=== PATIENT | female | born 1955 | race Caucasian/White ===

== ENCOUNTER 2017-10-01 15:38 | Inpatient (IN) | payer OTHER ==
[2017-10-01 16:25] LABS: ADD MAN DIFF? NO
[2017-10-01 16:27] LABS: WHITE BLOOD COUNT 16.8 10^3/ul (4.8-10.8)
[2017-10-01 16:27] LABS: BASOPHIL # 0.1 10^3/ul (0.0-0.1); BASOPHILS % 0.6 % (0.0-2.0); EOSINOPHILS # 0.1 10^3/ul (0.0-0.5); EOSINOPHILS % 0.8 % (0.0-7.0); HEMOGLOBIN 12.2 g/dl (12.0-16.0); LYMPHOCYTES # 2.7 10^3/ul (0.8-2.9); LYMPHOCYTES % 15.7 % (15.0-51.0); MEAN CORPUSCULAR HEMOGLOBIN 28.4 pg (29.0-33.0); MEAN CORPUSCULAR HGB CONC 33.9 g/dl (32.0-37.0); MEAN CORPUSCULAR VOLUME 83.9 fl (82.0-101.0); MONOCYTE # 0.9 10^3/ul (0.3-0.9); MONOCYTES % 5.5 % (0.0-11.0); NEUTROPHIL # 12.9 10^3/ul (1.6-7.5); NEUTROPHILS % 76.6 % (39.0-77.0); PLATELET COUNT 380 10^3/UL (140-415); RED BLOOD COUNT 4.29 10^6/ul (4.20-5.40); RED CELL DISTRIBUTION WIDTH 12.7 % (11.5-14.5)
[2017-10-01] MEDS: HYDROmorphONE 1 MG/5 ML IV SYRINGE IV ×2 (16:32→20:17)
[2017-10-01] MEDS: SOD CHLORIDE 0.9% 500 ML IV (16:32)
[2017-10-01] MEDS: ONDANSETRON 4 MG INJ IV ×2 (16:32→22:59)
[2017-10-01 16:46] LABS: ANION GAP 21 (8-16); BLOOD UREA NITROGEN 25 mg/dl (7-20); CALCIUM 9.3 mg/dl (8.4-10.2); CARBON DIOXIDE 24 mmol/L (21-31); CHLORIDE 96 mmol/L (97-110); CREATININE 1.13 mg/dl (0.44-1.00); GLUCOSE 244 mg/dl (70-220); POTASSIUM 3.8 mmol/L (3.5-5.1); SODIUM 137 mmol/L (135-144)
[2017-10-01] MEDS: KETAMINE (50 MG/ML) 10 ML VIAL IV (16:46)
[2017-10-01] MEDS: PROPOFOL 200 MG INJ IV (16:46)
[2017-10-01 16:58] LABS: INR 0.92; PROTIME 12.4 Sec (11.9-14.9)
[2017-10-01 16:59] LABS: PARTIAL THROMBOPLASTIN TIME 32.6 Sec (25.0-35.0)
[2017-10-01] MEDS ORDERED: LORAZEPAM 2 MG INJ (17:27)
[2017-10-01] MEDS: LORAZEPAM 2 MG INJ IV (17:30)
[2017-10-01] MEDS ORDERED: ONDANSETRON 4 MG INJ IV (19:00)
[2017-10-01] MEDS ORDERED: ACETAMINOPHEN 325 MG TAB PO (19:00)
[2017-10-01] MEDS ORDERED: GLUCAGON 1 MG INJ IM (22:30)
[2017-10-01] MEDS ORDERED: DEXTROSE 50% 50 ML SYRINGE IV ×2 (22:30)
[2017-10-01] MEDS ORDERED: GLUCOSE GEL 15 GRAM TUBE PO ×2 (22:30)
[2017-10-01] MEDS ORDERED: GLUCOSE GEL 15 GRAM TUBE BUCCAL (22:30)
[2017-10-01] MEDS: morphine 2 MG INJ IV (22:59)
[2017-10-01] MEDS: INSULIN ASPART [NOVOLOG] 3 ML PEN SC (23:53)
[2017-10-02] MEDS: ACCU-CHEK XX (04:00)
[2017-10-02] MEDS ORDERED: INSULIN ASPART [NOVOLOG] 3 ML PEN SC (07:50)
[2017-10-02] MEDS: ENOXAPARIN 40 MG/0.4 ML SYG SC (08:44)
[2017-10-02] MEDS: INSULIN ASPART [NOVOLOG] 3 ML PEN SC ×5 (09:04→21:00)
[2017-10-02] MEDS ORDERED: INSULIN REGULAR, HUMAN 100 UNIT/1 ML 3ML VIAL SC (11:10)
[2017-10-02] MEDS: ONDANSETRON 4 MG INJ IV (11:57)
[2017-10-02] MEDS: morphine 2 MG INJ IV (11:57)
[2017-10-02] MEDS: RANITIDINE 150 MG TAB PO (11:58)
[2017-10-02] MEDS: NIFEdipine (XL) 60 MG TAB PO (11:58)
[2017-10-02] MEDS: HYDROCHLOROTHIAZIDE 25 MG TAB PO (11:58)
[2017-10-02] MEDS: METOPROLOL 100 MG TAB PO ×2 (11:59→21:07)
[2017-10-02] MEDS: glipiZIDE 10 MG TAB PO (17:25)
[2017-10-02] MEDS: metFORMIN 500 MG TAB PO (18:17)
[2017-10-02] MEDS: INSULIN GLARGINE [LANtus] 3 ML PEN SC (21:34)
[2017-10-03] MEDS: ACCU-CHEK XX (02:00)
[2017-10-03] MEDS: morphine 2 MG INJ IV ×2 (02:05→19:42)
[2017-10-03] MEDS: HYDROCHLOROTHIAZIDE 25 MG TAB PO (06:14)
[2017-10-03] MEDS: NIFEdipine (XL) 60 MG TAB PO (08:54)
[2017-10-03] MEDS: RANITIDINE 150 MG TAB PO (08:54)
[2017-10-03] MEDS: metFORMIN 500 MG TAB PO ×2 (08:54→17:51)
[2017-10-03] MEDS: glipiZIDE 10 MG TAB PO ×2 (08:55→17:52)
[2017-10-03] MEDS: METOPROLOL 100 MG TAB PO ×2 (08:55→21:00)
[2017-10-03] MEDS: INSULIN ASPART [NOVOLOG] 3 ML PEN SC ×7 (09:01→21:00)
[2017-10-03] MEDS: ENOXAPARIN 30 MG/0.3 ML SYG SC (09:02)
[2017-10-03] MEDS: INSULIN GLARGINE [LANtus] 3 ML PEN SC ×2 (21:00→21:51)
[2017-10-04] MEDS: ACCU-CHEK XX (01:40)
[2017-10-04 05:43] LABS: ADD MAN DIFF? NO
[2017-10-04 05:47] LABS: BASOPHIL # 0.1 10^3/ul (0.0-0.1); BASOPHILS % 0.4 % (0.0-2.0); EOSINOPHILS # 0.1 10^3/ul (0.0-0.5); HEMATOCRIT 30.3 % (37.0-47.0); HEMOGLOBIN 10.3 g/dl (12.0-16.0); LYMPHOCYTES # 2.1 10^3/ul (0.8-2.9); LYMPHOCYTES % 17.2 % (15.0-51.0); MEAN CORPUSCULAR HEMOGLOBIN 28.4 pg (29.0-33.0); MEAN CORPUSCULAR VOLUME 83.5 fl (82.0-101.0); MEAN PLATELET VOLUME 8.9 fl (7.4-10.4); MONOCYTE # 1.1 10^3/ul (0.3-0.9); MONOCYTES % 9.1 % (0.0-11.0); NEUTROPHIL # 8.6 10^3/ul (1.6-7.5); NEUTROPHILS % 71.7 % (39.0-77.0); PLATELET COUNT 334 10^3/UL (140-415); RED BLOOD COUNT 3.63 10^6/ul (4.20-5.40); RED CELL DISTRIBUTION WIDTH 12.5 % (11.5-14.5)
[2017-10-04 06:15] LABS: ANION GAP 13 (8-16); BLOOD UREA NITROGEN 26 mg/dl (7-20); CARBON DIOXIDE 28 mmol/L (21-31); CHLORIDE 99 mmol/L (97-110); CREATININE 0.99 mg/dl (0.44-1.00); GLUCOSE 209 mg/dl (70-220); POTASSIUM 3.8 mmol/L (3.5-5.1); SODIUM 136 mmol/L (135-144)
[2017-10-04] MEDS: HYDROCHLOROTHIAZIDE 25 MG TAB PO (06:22)
[2017-10-04] MEDS: metFORMIN 500 MG TAB PO ×2 (08:37→18:07)
[2017-10-04] MEDS: glipiZIDE 10 MG TAB PO ×2 (08:38→18:07)
[2017-10-04] MEDS: NIFEdipine (XL) 60 MG TAB PO (08:38)
[2017-10-04] MEDS: RANITIDINE 150 MG TAB PO (08:38)
[2017-10-04] MEDS: METOPROLOL 100 MG TAB PO ×2 (08:39→21:37)
[2017-10-04] MEDS: ENOXAPARIN 30 MG/0.3 ML SYG SC (08:40)
[2017-10-04] MEDS: INSULIN ASPART [NOVOLOG] 3 ML PEN SC ×7 (08:41→21:00)
[2017-10-04] MEDS: morphine 2 MG INJ IV (18:13)
[2017-10-04] MEDS: INSULIN GLARGINE [LANtus] 3 ML PEN SC (21:42)
[2017-10-05] MEDS: ACCU-CHEK XX (02:00)
[2017-10-05] MEDS: morphine 2 MG INJ IV ×2 (03:45→22:46)
[2017-10-05] MEDS: ONDANSETRON 4 MG INJ IV ×2 (03:52→22:46)
[2017-10-05 05:06] LABS: ADD MAN DIFF? NO
[2017-10-05 05:09] LABS: BASOPHIL # 0.1 10^3/ul (0.0-0.1); BASOPHILS % 0.4 % (0.0-2.0); EOSINOPHILS # 0.1 10^3/ul (0.0-0.5); EOSINOPHILS % 0.8 % (0.0-7.0); HEMATOCRIT 31.1 % (37.0-47.0); HEMOGLOBIN 10.6 g/dl (12.0-16.0); LYMPHOCYTES # 1.9 10^3/ul (0.8-2.9); LYMPHOCYTES % 16.8 % (15.0-51.0); MEAN CORPUSCULAR HEMOGLOBIN 28.1 pg (29.0-33.0); MEAN CORPUSCULAR HGB CONC 34.1 g/dl (32.0-37.0); MEAN CORPUSCULAR VOLUME 82.5 fl (82.0-101.0); MEAN PLATELET VOLUME 8.8 fl (7.4-10.4); MONOCYTES % 9.2 % (0.0-11.0); NEUTROPHIL # 8.2 10^3/ul (1.6-7.5); NEUTROPHILS % 72.3 % (39.0-77.0); PLATELET COUNT 353 10^3/UL (140-415); RED BLOOD COUNT 3.77 10^6/ul (4.20-5.40); RED CELL DISTRIBUTION WIDTH 12.5 % (11.5-14.5)
[2017-10-05 05:09] LABS: WHITE BLOOD COUNT 11.3 10^3/ul (4.8-10.8)
[2017-10-05 05:30] LABS: ANION GAP 18 (8-16); BLOOD UREA NITROGEN 27 mg/dl (7-20); CALCIUM 9.3 mg/dl (8.4-10.2); CARBON DIOXIDE 26 mmol/L (21-31); CHLORIDE 96 mmol/L (97-110); CREATININE 1.09 mg/dl (0.44-1.00); GLUCOSE 149 mg/dl (70-220); POTASSIUM 3.9 mmol/L (3.5-5.1); SODIUM 136 mmol/L (135-144)
[2017-10-05] MEDS: HYDROCHLOROTHIAZIDE 25 MG TAB PO (06:08)
[2017-10-05] MEDS: glipiZIDE 10 MG TAB PO (09:01)
[2017-10-05] MEDS: metFORMIN 500 MG TAB PO ×2 (09:01→17:35)
[2017-10-05] MEDS: RANITIDINE 150 MG TAB PO (09:01)
[2017-10-05] MEDS: METOPROLOL 100 MG TAB PO ×2 (09:02→21:09)
[2017-10-05] MEDS: NIFEdipine (XL) 60 MG TAB PO (09:03)
[2017-10-05] MEDS: INSULIN ASPART [NOVOLOG] 3 ML PEN SC ×7 (09:07→21:00)
[2017-10-05] MEDS: ENOXAPARIN 30 MG/0.3 ML SYG SC (09:08)
[2017-10-05] MEDS: INSULIN GLARGINE [LANtus] 3 ML PEN SC (21:11)
[2017-10-06] MEDS: ACCU-CHEK XX (01:38)
[2017-10-06 05:13] LABS: ADD MAN DIFF? NO
[2017-10-06 05:18] LABS: WHITE BLOOD COUNT 10.5 10^3/ul (4.8-10.8)
[2017-10-06 05:18] LABS: BASOPHILS % 0.4 % (0.0-2.0); EOSINOPHILS # 0.1 10^3/ul (0.0-0.5); EOSINOPHILS % 1.1 % (0.0-7.0); HEMATOCRIT 29.1 % (37.0-47.0); HEMOGLOBIN 9.8 g/dl (12.0-16.0); LYMPHOCYTES # 2.5 10^3/ul (0.8-2.9); LYMPHOCYTES % 23.6 % (15.0-51.0); MEAN CORPUSCULAR HGB CONC 33.7 g/dl (32.0-37.0); MEAN CORPUSCULAR VOLUME 83.1 fl (82.0-101.0); MEAN PLATELET VOLUME 8.9 fl (7.4-10.4); MONOCYTE # 0.9 10^3/ul (0.3-0.9); MONOCYTES % 8.6 % (0.0-11.0); NEUTROPHIL # 6.9 10^3/ul (1.6-7.5); NEUTROPHILS % 65.7 % (39.0-77.0); PLATELET COUNT 344 10^3/UL (140-415); RED CELL DISTRIBUTION WIDTH 12.8 % (11.5-14.5)
[2017-10-06 05:35] LABS: ANION GAP 15 (8-16); BLOOD UREA NITROGEN 30 mg/dl (7-20); CALCIUM 9.3 mg/dl (8.4-10.2); CARBON DIOXIDE 29 mmol/L (21-31); CHLORIDE 96 mmol/L (97-110); CREATININE 1.21 mg/dl (0.44-1.00); GLUCOSE 180 mg/dl (70-220); POTASSIUM 4.4 mmol/L (3.5-5.1); SODIUM 136 mmol/L (135-144)
[2017-10-06] MEDS: HYDROCHLOROTHIAZIDE 25 MG TAB PO (06:19)
[2017-10-06] MEDS ORDERED: glipiZIDE 10 MG TAB PO (07:20)
[2017-10-06] MEDS: LINAGLIPTIN 5 MG TABLET PO (09:13)
[2017-10-06] MEDS: metFORMIN 500 MG TAB PO ×2 (09:13→17:52)
[2017-10-06] MEDS: RANITIDINE 150 MG TAB PO (09:13)
[2017-10-06] MEDS: NIFEdipine (XL) 60 MG TAB PO (09:14)
[2017-10-06] MEDS: METOPROLOL 100 MG TAB PO ×2 (09:14→20:53)
[2017-10-06] MEDS: ENOXAPARIN 30 MG/0.3 ML SYG SC (09:18)
[2017-10-06] MEDS: INSULIN ASPART [NOVOLOG] 3 ML PEN SC ×7 (09:26→20:56)
[2017-10-06] MEDS: MAGNESIUM HYDROXIDE 30ML CUP PO (16:19)
[2017-10-06] MEDS: SOD CHLORIDE 0.45% IV (18:49)
[2017-10-06] MEDS: SODIUM CHLORIDE 0.45% 500 ML BAG IV* ×2 (18:52→18:54)
[2017-10-06] MEDS: ACETAMINOPHEN 325 MG TAB PO (19:01)
[2017-10-06] MEDS: DOCUSATE SODIUM 100 MG CAP PO (20:52)
[2017-10-06] MEDS: INSULIN GLARGINE [LANtus] 3 ML PEN SC (21:00)
[2017-10-07] MEDS: ACCU-CHEK XX (02:00)
[2017-10-07] MEDS: morphine 2 MG INJ IV (03:24)
[2017-10-07 05:01] LABS: ADD MAN DIFF? NO
[2017-10-07 05:06] LABS: BASOPHIL # 0.1 10^3/ul (0.0-0.1); BASOPHILS % 0.5 % (0.0-2.0); EOSINOPHILS # 0.2 10^3/ul (0.0-0.5); EOSINOPHILS % 1.5 % (0.0-7.0); HEMATOCRIT 29.4 % (37.0-47.0); HEMOGLOBIN 9.9 g/dl (12.0-16.0); LYMPHOCYTES # 2.1 10^3/ul (0.8-2.9); LYMPHOCYTES % 21.2 % (15.0-51.0); MEAN CORPUSCULAR HGB CONC 33.7 g/dl (32.0-37.0); MEAN CORPUSCULAR VOLUME 83.3 fl (82.0-101.0); MEAN PLATELET VOLUME 8.9 fl (7.4-10.4); MONOCYTE # 0.9 10^3/ul (0.3-0.9); MONOCYTES % 9.5 % (0.0-11.0); NEUTROPHIL # 6.5 10^3/ul (1.6-7.5); NEUTROPHILS % 66.5 % (39.0-77.0); PLATELET COUNT 369 10^3/UL (140-415); RED BLOOD COUNT 3.53 10^6/ul (4.20-5.40); RED CELL DISTRIBUTION WIDTH 12.8 % (11.5-14.5)
[2017-10-07 05:06] LABS: WHITE BLOOD COUNT 9.8 10^3/ul (4.8-10.8)
[2017-10-07 05:25] LABS: ANION GAP 18 (8-16); BLOOD UREA NITROGEN 29 mg/dl (7-20); CALCIUM 9.3 mg/dl (8.4-10.2); CARBON DIOXIDE 28 mmol/L (21-31); CHLORIDE 95 mmol/L (97-110); CREATININE 1.14 mg/dl (0.44-1.00); GLUCOSE 175 mg/dl (70-220); POTASSIUM 3.9 mmol/L (3.5-5.1); SODIUM 137 mmol/L (135-144)
[2017-10-07] MEDS: NIFEdipine (XL) 60 MG TAB PO (08:34)
[2017-10-07] MEDS: RANITIDINE 150 MG TAB PO (08:34)
[2017-10-07] MEDS: metFORMIN 500 MG TAB PO ×2 (08:35→17:47)
[2017-10-07] MEDS: DOCUSATE SODIUM 100 MG CAP PO ×2 (08:35→20:41)
[2017-10-07] MEDS: LINAGLIPTIN 5 MG TABLET PO (08:35)
[2017-10-07] MEDS: METOPROLOL 100 MG TAB PO ×2 (08:36→20:41)
[2017-10-07] MEDS: SENNA TAB PO ×2 (08:36→20:41)
[2017-10-07] MEDS: BISACODYL (EC) 5 MG TAB PO (08:36)
[2017-10-07] MEDS: INSULIN ASPART [NOVOLOG] 3 ML PEN SC ×7 (08:40→20:45)
[2017-10-07] MEDS: HYDROCODONE/APAP (5/325) TAB PO (17:48)
[2017-10-07] MEDS: INSULIN GLARGINE [LANtus] 3 ML PEN SC (20:46)
[2017-10-08] MEDS: ACCU-CHEK XX (02:00)
[2017-10-08] MEDS: HYDROCODONE/APAP (5/325) TAB PO ×3 (02:33→16:55)
[2017-10-08] MEDS: metFORMIN 500 MG TAB PO ×2 (07:50→18:06)
[2017-10-08] MEDS: INSULIN ASPART [NOVOLOG] 3 ML PEN SC ×7 (07:50→20:53)
[2017-10-08] MEDS: RANITIDINE 150 MG TAB PO (09:36)
[2017-10-08] MEDS: LINAGLIPTIN 5 MG TABLET PO (09:37)
[2017-10-08] MEDS: SENNA TAB PO ×2 (09:37→20:52)
[2017-10-08] MEDS: NIFEdipine (XL) 60 MG TAB PO (09:37)
[2017-10-08] MEDS: METOPROLOL 100 MG TAB PO ×2 (09:39→20:35)
[2017-10-08] MEDS: DOCUSATE SODIUM 100 MG CAP PO ×2 (09:44→20:52)
[2017-10-08] MEDS: INSULIN GLARGINE [LANtus] 3 ML PEN SC (20:39)
[2017-10-09] MEDS: HYDROCODONE/APAP (5/325) TAB PO ×3 (00:17→18:11)
[2017-10-09] MEDS: ACCU-CHEK XX (01:23)
[2017-10-09] MEDS: INSULIN ASPART [NOVOLOG] 3 ML PEN SC ×7 (09:06→20:48)
[2017-10-09] MEDS: RANITIDINE 150 MG TAB PO (09:09)
[2017-10-09] MEDS: metFORMIN 500 MG TAB PO ×2 (09:09→18:11)
[2017-10-09] MEDS: DOCUSATE SODIUM 100 MG CAP PO ×2 (09:09→20:41)
[2017-10-09] MEDS: NIFEdipine (XL) 60 MG TAB PO (09:09)
[2017-10-09] MEDS: LINAGLIPTIN 5 MG TABLET PO (09:09)
[2017-10-09] MEDS: METOPROLOL 100 MG TAB PO ×2 (09:09→20:42)
[2017-10-09] MEDS: SENNA TAB PO ×2 (09:09→20:42)
[2017-10-09] MEDS: INSULIN GLARGINE [LANtus] 3 ML PEN SC (20:48)
[2017-10-10] MEDS: HYDROCODONE/APAP (5/325) TAB PO ×4 (01:57→21:21)
[2017-10-10] MEDS: ACCU-CHEK XX (02:00)
[2017-10-10] MEDS: metFORMIN 500 MG TAB PO ×2 (08:38→17:47)
[2017-10-10] MEDS: NIFEdipine (XL) 60 MG TAB PO (08:39)
[2017-10-10] MEDS: DOCUSATE SODIUM 100 MG CAP PO ×2 (08:39→20:59)
[2017-10-10] MEDS: LINAGLIPTIN 5 MG TABLET PO (08:39)
[2017-10-10] MEDS: RANITIDINE 150 MG TAB PO (08:39)
[2017-10-10] MEDS: SENNA TAB PO ×2 (08:39→20:59)
[2017-10-10] MEDS: METOPROLOL 100 MG TAB PO ×2 (08:41→20:59)
[2017-10-10] MEDS: INSULIN ASPART [NOVOLOG] 3 ML PEN SC ×8 (08:53→21:00)
[2017-10-10] MEDS: INSULIN GLARGINE [LANtus] 3 ML PEN SC (21:06)
[2017-10-11] MEDS: ACCU-CHEK XX (01:41)
[2017-10-11 05:45] LABS: ADD MAN DIFF? NO
[2017-10-11 06:11] LABS: WHITE BLOOD COUNT 9.9 10^3/ul (4.8-10.8)
[2017-10-11 06:11] LABS: BASOPHIL # 0.1 10^3/ul (0.0-0.1); BASOPHILS % 0.6 % (0.0-2.0); EOSINOPHILS # 0.2 10^3/ul (0.0-0.5); EOSINOPHILS % 1.6 % (0.0-7.0); HEMATOCRIT 30.9 % (37.0-47.0); HEMOGLOBIN 10.2 g/dl (12.0-16.0); LYMPHOCYTES # 2.4 10^3/ul (0.8-2.9); LYMPHOCYTES % 23.8 % (15.0-51.0); MEAN CORPUSCULAR HEMOGLOBIN 28.4 pg (29.0-33.0); MEAN CORPUSCULAR VOLUME 86.1 fl (82.0-101.0); MEAN PLATELET VOLUME 8.8 fl (7.4-10.4); MONOCYTE # 0.8 10^3/ul (0.3-0.9); MONOCYTES % 8.5 % (0.0-11.0); NEUTROPHIL # 6.3 10^3/ul (1.6-7.5); NEUTROPHILS % 64.4 % (39.0-77.0); PLATELET COUNT 450 10^3/UL (140-415); RED BLOOD COUNT 3.59 10^6/ul (4.20-5.40); RED CELL DISTRIBUTION WIDTH 12.9 % (11.5-14.5)
[2017-10-11 06:41] LABS: ANION GAP 15 (8-16); BLOOD UREA NITROGEN 21 mg/dl (7-20); CALCIUM 9.4 mg/dl (8.4-10.2); CARBON DIOXIDE 29 mmol/L (21-31); CHLORIDE 97 mmol/L (97-110); CREATININE 0.94 mg/dl (0.44-1.00); GLUCOSE 162 mg/dl (70-220); POTASSIUM 4.6 mmol/L (3.5-5.1); SODIUM 136 mmol/L (135-144)
[2017-10-11] MEDS: metFORMIN 500 MG TAB PO ×2 (08:43→18:39)
[2017-10-11] MEDS: DOCUSATE SODIUM 100 MG CAP PO ×2 (08:43→20:48)
[2017-10-11] MEDS: METOPROLOL 100 MG TAB PO ×2 (08:44→20:48)
[2017-10-11] MEDS: SENNA TAB PO ×2 (08:45→20:48)
[2017-10-11] MEDS: NIFEdipine (XL) 60 MG TAB PO (08:45)
[2017-10-11] MEDS: HYDROCODONE/APAP (5/325) TAB PO ×2 (08:46→18:39)
[2017-10-11] MEDS: LINAGLIPTIN 5 MG TABLET PO (08:46)
[2017-10-11] MEDS: RANITIDINE 150 MG TAB PO (08:47)
[2017-10-11] MEDS: INSULIN ASPART [NOVOLOG] 3 ML PEN SC ×7 (08:51→20:52)
[2017-10-11] MEDS: INSULIN GLARGINE [LANtus] 3 ML PEN SC (20:51)
[2017-10-12] MEDS: HYDROCODONE/APAP (5/325) TAB PO ×4 (00:43→16:02)
[2017-10-12] MEDS: ACCU-CHEK XX (02:08)
[2017-10-12] MEDS: metFORMIN 500 MG TAB PO ×2 (08:42→17:52)
[2017-10-12] MEDS: SENNA TAB PO (08:42)
[2017-10-12] MEDS: NIFEdipine (XL) 60 MG TAB PO (08:42)
[2017-10-12] MEDS: RANITIDINE 150 MG TAB PO (08:43)
[2017-10-12] MEDS: METOPROLOL 100 MG TAB PO (08:43)
[2017-10-12] MEDS: DOCUSATE SODIUM 100 MG CAP PO (08:43)
[2017-10-12] MEDS: LINAGLIPTIN 5 MG TABLET PO (08:43)
[2017-10-12] MEDS: INSULIN ASPART [NOVOLOG] 3 ML PEN SC ×6 (08:48→17:42)
== END 2017-10-12 19:10 | disposition home or self-care (01) | DRG 563 ==
LOC: MS1 10-03 06:12 → E/R 15:38 → MS1 18:43
PROC: 0RS Upper Joints, Reposition (ICD-10-PCS; principal; 2017-10-01)
DX: S53.101A Unspecified subluxation of right ulnohumeral joint, initial encounter (principal); S53.124A Posterior dislocation of right ulnohumeral joint, initial encounter; S52.131A Displaced fracture of neck of right radius, initial encounter for closed fracture; I10 Essential (primary) hypertension; E78.5 Hyperlipidemia, unspecified; W18.30XA Fall on same level, unspecified, initial encounter; Y92.009 Unspecified place in unspecified non-institutional (private) residence as the place of occurrence of the external cause; E11.65 Type 2 diabetes mellitus with hyperglycemia
CPT/HCPCS: 36415; 71045; 73070; 73070-52; 73120; 73200; 80048; 82962; 83036; 85025; 85610; 85730; 93005; 94770; 96374; 96375; 96376; 99285-25

== ENCOUNTER 2017-12-01 05:54 | Day surgery (SDC) | payer OTHER ==
[2017-12-01] MEDS ORDERED: BUPIVACAINE 0.25% (MPF) 30 ML INJ (07:00)
[2017-12-01] MEDS ORDERED: LACTATED RINGER'S 1,000 ML IV* (07:00)
[2017-12-01] MEDS ORDERED: CEFAZOLIN 2 GM/50 ML (PMX) 50 ML IVPB (07:00)
[2017-12-01] MEDS: INSULIN ASPART [NOVOLOG] 3 ML PEN SC ×2 (07:03→08:12)
[2017-12-01] MEDS ORDERED: ROCURONIUM 50 MG INJ (07:44)
[2017-12-01] MEDS ORDERED: HYDROmorphONE 2 MG/ML SYG (07:44)
[2017-12-01] MEDS ORDERED: CEFAZOLIN 1 GM INJ (07:44)
[2017-12-01] MEDS ORDERED: MIDAZOLAM 1 MG/ML 2 ML INJ (07:44)
[2017-12-01] MEDS ORDERED: PROPOFOL 20 ML (07:44)
[2017-12-01] MEDS ORDERED: ROPIVACAINE 0.5 % 30 ML VIAL (07:45)
[2017-12-01] MEDS: POLYMYXIN/BACITRACIN 1L IRRIG (08:32)
[2017-12-01] MEDS ORDERED: LABETALOL HCL 20MG INJ (09:16)
[2017-12-01] MEDS ORDERED: VANCOMYCIN 1 GM INJ (09:53)
[2017-12-01] MEDS ORDERED: ONDANSETRON 4 MG INJ (10:26)
[2017-12-01] MEDS ORDERED: METOCLOPRAMIDE 10 MG INJ (10:26)
[2017-12-01] MEDS ORDERED: ACETAMINOPHEN 1000MG/100ML IV 100 ML (10:26)
[2017-12-01] MEDS ORDERED: KETOROLAC 30 MG INJ (10:27)
[2017-12-01] MEDS ORDERED: DEXAMETHASONE 4 MG/ML 1 ML INJ (10:27)
[2017-12-01] MEDS ORDERED: GLYCOPYRROLATE 0.4 MG INJ (10:32)
[2017-12-01] MEDS ORDERED: NEOSTIGMINE 3 MG/3 ML SYRINGE (10:32)
[2017-12-01] MEDS ORDERED: hydrALAzine 20 MG INJ (11:28)
[2017-12-01] MEDS ORDERED: ONDANSETRON 4 MG INJ IV (11:30)
[2017-12-01] MEDS ORDERED: HYDROmorphONE 1 MG/5 ML IV SYRINGE IV ×3 (11:30)
[2017-12-01] MEDS ORDERED: METOCLOPRAMIDE 10 MG INJ IV (11:30)
[2017-12-01] MEDS ORDERED: LABETALOL HCL 20MG INJ IV (11:30)
[2017-12-01] MEDS ORDERED: DIPHENHYDRAMINE 50 MG INJ IV (11:30)
[2017-12-01] MEDS ORDERED: EPHEDrine SULFATE 50 MG/5 ML SYG IV (11:30)
[2017-12-01] MEDS ORDERED: OXYCODONE/ACETAMINOPHEN (5/325) TAB PO ×2 (11:30)
[2017-12-01] MEDS ORDERED: MEPERIDINE 25 MG INJ IV (11:30)
[2017-12-01] MEDS ORDERED: FENTAnyl 50 MCG/ML VIAL IV ×3 (11:30)
[2017-12-01] MEDS: hydrALAzine 20 MG INJ IV ×2 (11:35→11:40)
[2017-12-01] MEDS: NITROGLYCERIN (SL) 0.4 MG TAB SL (14:32)
== END 2017-12-06 08:35 | disposition home health service (06) ==
LOC: SDS 05:54 → REC 12-03 19:20
DX: S52.121D Displaced fracture of head of right radius, subsequent encounter for closed fracture with routine healing (principal); S53.431D Radial collateral ligament sprain of right elbow, subsequent encounter; S44.0 Injury of ulnar nerve at upper arm level; X58.XXXD Exposure to other specified factors, subsequent encounter; G56.21 Lesion of ulnar nerve, right upper limb; E11.9 Type 2 diabetes mellitus without complications; I10 Essential (primary) hypertension; E78.5 Hyperlipidemia, unspecified; E66.9 Obesity, unspecified; Z68.29 Body mass index [BMI] 29.0-29.9, adult
CPT/HCPCS: 24344; 73080-RT; 82962; 93005

== ENCOUNTER 2017-12-01 15:06 | Inpatient (IN) | payer OTHER ==
[2017-12-01 16:28] LABS: ADD MAN DIFF? NO
[2017-12-01 16:34] LABS: BASOPHILS % 0.2 % (0.0-2.0); HEMOGLOBIN 11.1 g/dl (12.0-16.0); LYMPHOCYTES # 0.6 10^3/ul (0.8-2.9); LYMPHOCYTES % 3.8 % (15.0-51.0); MEAN CORPUSCULAR HEMOGLOBIN 28.1 pg (29.0-33.0); MEAN CORPUSCULAR HGB CONC 33.6 g/dl (32.0-37.0); MEAN CORPUSCULAR VOLUME 83.5 fl (82.0-101.0); MONOCYTE # 0.3 10^3/ul (0.3-0.9); NEUTROPHIL # 15.1 10^3/ul (1.6-7.5); NEUTROPHILS % 93.4 % (39.0-77.0); PLATELET COUNT 328 10^3/UL (140-415); RED BLOOD COUNT 3.95 10^6/ul (4.20-5.40); RED CELL DISTRIBUTION WIDTH 12.5 % (11.5-14.5)
[2017-12-01 16:34] LABS: WHITE BLOOD COUNT 16.1 10^3/ul (4.8-10.8)
[2017-12-01 16:53] LABS: ANION GAP 20 (8-16); BLOOD UREA NITROGEN 17 mg/dl (7-20); CARBON DIOXIDE 23 mmol/L (21-31); CHLORIDE 98 mmol/L (97-110); CREATININE 0.95 mg/dl (0.44-1.00); POTASSIUM 4.3 mmol/L (3.5-5.1); SODIUM 137 mmol/L (135-144)
[2017-12-01 17:00] LABS: INR 1.04; PROTIME 13.7 Sec (11.9-14.9); PT RATIO 1.1
[2017-12-01 17:01] LABS: GLUCOSE 403 mg/dl (70-220); PARTIAL THROMBOPLASTIN TIME 27.7 Sec (25.0-35.0)
[2017-12-01 17:03] LABS: D-DIMER 1344.62 ng/ml (<460)
[2017-12-01 17:06] LABS: TROPONIN-I < 0.012 ng/ml (0.000-0.120)
[2017-12-01] MEDS: SOD CHLORIDE 0.9% 1,000 ML IV (18:19)
[2017-12-01] MEDS: ASPIRIN 325 MG TAB PO (18:19)
[2017-12-01] MEDS: SOD CHLORIDE 0.9% 100 ML (20:03)
[2017-12-01] MEDS: IOHEXOL 100 ML (20:03)
[2017-12-01 21:50] LABS: CREATINE KINASE 243 IU/L (23-200)
[2017-12-01 22:00] LABS: CK INDEX 0.7; CK-MB 1.69 ng/ml (0.0-2.4)
[2017-12-01 22:04] LABS: TROPONIN-I < 0.012 ng/ml (0.000-0.120)
[2017-12-01] MEDS ORDERED: NITROGLYCERIN (SL) 0.4 MG TAB SL (23:30)
[2017-12-01] MEDS ORDERED: DEXTROSE 50% 50 ML SYRINGE IV ×2 (23:45)
[2017-12-01] MEDS ORDERED: GLUCOSE GEL 15 GRAM TUBE BUCCAL (23:45)
[2017-12-01] MEDS ORDERED: GLUCOSE GEL 15 GRAM TUBE PO ×2 (23:45)
[2017-12-01] MEDS ORDERED: GLUCAGON 1 MG INJ IM (23:45)
[2017-12-02] MEDS ORDERED: ACCU-CHEK XX ×2 (02:00)
[2017-12-02] MEDS: ACCU-CHEK XX (02:32)
[2017-12-02] MEDS: HYDROCODONE/APAP (5/325) TAB PO ×4 (02:39→20:51)
[2017-12-02] MEDS: ACETAMINOPHEN 500 MG TAB PO (04:11)
[2017-12-02] MEDS: PANTOPRAZOLE (EC) 40 MG TAB PO (06:15)
[2017-12-02 07:59] LABS: ADD MAN DIFF? NO
[2017-12-02] MEDS: INSULIN ASPART [NOVOLOG] 3 ML PEN SC ×8 (08:05→20:50)
[2017-12-02] MEDS: ISOSORBIDE MONONITRATE(SR)30 MG TAB PO (08:14)
[2017-12-02] MEDS: HYDROCHLOROTHIAZIDE 25 MG TAB PO (08:14)
[2017-12-02] MEDS: LINAGLIPTIN 5 MG TABLET PO (08:14)
[2017-12-02] MEDS: ASPIRIN (EC) 325 MG TAB PO (08:16)
[2017-12-02] MEDS: METOPROLOL 25 MG TAB PO (08:16)
[2017-12-02] MEDS: NIFEdipine (XL) 60 MG TAB PO (08:16)
[2017-12-02] MEDS: LOSARTAN 50 MG TAB PO (08:16)
[2017-12-02 08:17] LABS: WHITE BLOOD COUNT 11.6 10^3/ul (4.8-10.8)
[2017-12-02 08:17] LABS: BASOPHILS % 0.2 % (0.0-2.0); HEMATOCRIT 29.9 % (37.0-47.0); HEMOGLOBIN 9.9 g/dl (12.0-16.0); LYMPHOCYTES # 1.8 10^3/ul (0.8-2.9); LYMPHOCYTES % 15.9 % (15.0-51.0); MEAN CORPUSCULAR HEMOGLOBIN 27.7 pg (29.0-33.0); MEAN CORPUSCULAR HGB CONC 33.1 g/dl (32.0-37.0); MEAN CORPUSCULAR VOLUME 83.5 fl (82.0-101.0); MEAN PLATELET VOLUME 9.3 fl (7.4-10.4); MONOCYTE # 1.3 10^3/ul (0.3-0.9); MONOCYTES % 11.1 % (0.0-11.0); NEUTROPHIL # 8.4 10^3/ul (1.6-7.5); NEUTROPHILS % 72.4 % (39.0-77.0); PLATELET COUNT 305 10^3/UL (140-415); RED BLOOD COUNT 3.58 10^6/ul (4.20-5.40); RED CELL DISTRIBUTION WIDTH 12.9 % (11.5-14.5)
[2017-12-02 08:30] LABS: CHOLESTEROL 161 mg/dl (100-200)
[2017-12-02 08:30] LABS: CHOL/HDL RATIO 4.4 RATIO; HDL CHOLESTEROL 36 mg/dl (35-98); LDL CHOLESTEROL,CALCULATED 93 mg/dl; TRIGLYCERIDES 160 mg/dl (0-149)
[2017-12-02 08:31] LABS: HEMOGLOBIN A1C 7.8 % (0-5.9)
[2017-12-02 08:37] LABS: CREATINE KINASE 220 IU/L (23-200)
[2017-12-02 08:46] LABS: CK INDEX 0.8; CK-MB 1.75 ng/ml (0.0-2.4)
[2017-12-02 08:47] LABS: TROPONIN-I < 0.012 ng/ml (0.000-0.120)
[2017-12-02] MEDS ORDERED: NITROGLYCERIN (SL) 0.4 MG TAB SL (13:30)
[2017-12-02 14:28] LABS: CHOLESTEROL 174 mg/dl (100-200)
[2017-12-02 14:28] LABS: CHOL/HDL RATIO 4.2 RATIO; HDL CHOLESTEROL 41 mg/dl (35-98); LDL CHOLESTEROL,CALCULATED 100 mg/dl; TRIGLYCERIDES 166 mg/dl (0-149)
[2017-12-02 15:07] LABS: TROPONIN-I < 0.012 ng/ml (0.000-0.120)
[2017-12-02] MEDS: metFORMIN 500 MG TAB PO (18:07)
[2017-12-02 18:17] LABS: IRON 74 ug/dl (35-150)
[2017-12-02 18:27] LABS: % IRON SATURATION 26 % SAT (22-52); TOTAL IRON BINDING CAPACITY 282 ug/dl (241-421)
[2017-12-02 20:19] LABS: HEPATITIS C VIRAL ANTIBODY NEGATIVE (NEGATIVE)
[2017-12-02] MEDS: INSULIN GLARGINE [LANtus] 3 ML PEN SC (20:49)
[2017-12-02] MEDS: METOPROLOL 50 MG TAB PO (20:51)
[2017-12-03] MEDS: ACCU-CHEK XX (02:00)
[2017-12-03] MEDS: PANTOPRAZOLE (EC) 40 MG TAB PO (05:42)
[2017-12-03] MEDS: ISOSORBIDE MONONITRATE(SR)30 MG TAB PO (08:32)
[2017-12-03] MEDS: metFORMIN 500 MG TAB PO ×2 (08:32→17:23)
[2017-12-03] MEDS: LOSARTAN 50 MG TAB PO (08:32)
[2017-12-03] MEDS: NIFEdipine (XL) 30 MG TAB PO (08:33)
[2017-12-03] MEDS: METOPROLOL 50 MG TAB PO (08:33)
[2017-12-03] MEDS: ASPIRIN (EC) 325 MG TAB PO (08:33)
[2017-12-03] MEDS: LINAGLIPTIN 5 MG TABLET PO (08:33)
[2017-12-03] MEDS: HYDROCHLOROTHIAZIDE 25 MG TAB PO (08:33)
[2017-12-03 08:37] LABS: ADD MAN DIFF? NO
[2017-12-03] MEDS: INSULIN ASPART [NOVOLOG] 3 ML PEN SC ×7 (08:39→20:41)
[2017-12-03 08:42] LABS: WHITE BLOOD COUNT 13.2 10^3/ul (4.8-10.8)
[2017-12-03 08:42] LABS: BASOPHIL # 0.1 10^3/ul (0.0-0.1); BASOPHILS % 0.4 % (0.0-2.0); EOSINOPHILS # 0.2 10^3/ul (0.0-0.5); EOSINOPHILS % 1.2 % (0.0-7.0); HEMATOCRIT 32.1 % (37.0-47.0); HEMOGLOBIN 10.6 g/dl (12.0-16.0); LYMPHOCYTES # 2.5 10^3/ul (0.8-2.9); LYMPHOCYTES % 19.1 % (15.0-51.0); MEAN CORPUSCULAR HEMOGLOBIN 27.9 pg (29.0-33.0); MEAN CORPUSCULAR VOLUME 84.5 fl (82.0-101.0); MEAN PLATELET VOLUME 9.2 fl (7.4-10.4); MONOCYTES % 7.8 % (0.0-11.0); NEUTROPHIL # 9.4 10^3/ul (1.6-7.5); NEUTROPHILS % 70.8 % (39.0-77.0); PLATELET COUNT 319 10^3/UL (140-415); RED CELL DISTRIBUTION WIDTH 12.6 % (11.5-14.5)
[2017-12-03] MEDS ORDERED: NIFEdipine (XL) 60 MG TAB PO (09:00)
[2017-12-03 09:05] LABS: ANION GAP 17 (8-16); BLOOD UREA NITROGEN 22 mg/dl (7-20); CALCIUM 9.2 mg/dl (8.4-10.2); CARBON DIOXIDE 28 mmol/L (21-31); CHLORIDE 95 mmol/L (97-110); CREATININE 0.92 mg/dl (0.44-1.00); GLUCOSE 271 mg/dl (70-220); POTASSIUM 4.4 mmol/L (3.5-5.1); SODIUM 136 mmol/L (135-144)
[2017-12-03 09:13] LABS: FREE T4 (FREE THYROXINE) 2.41 ng/dl (0.78-2.44)
[2017-12-03 09:18] LABS: HEMOGLOBIN A1C 8.1 % (0-5.9)
[2017-12-03 09:51] LABS: THYROID STIMULATING HORMONE 0.449 MIU/L (0.465-4.680)
[2017-12-03 10:49] LABS: CHOLESTEROL 180 mg/dl (100-200)
[2017-12-03 10:49] LABS: HDL CHOLESTEROL 36 mg/dl (35-98); LDL CHOLESTEROL,CALCULATED 100 mg/dl; TRIGLYCERIDES 221 mg/dl (0-149)
[2017-12-03] MEDS: METOPROLOL 100 MG TAB PO (20:40)
[2017-12-03] MEDS: INSULIN GLARGINE [LANtus] 3 ML PEN SC (20:41)
[2017-12-04] MEDS: ACCU-CHEK XX (02:00)
[2017-12-04] MEDS: PANTOPRAZOLE (EC) 40 MG TAB PO (05:23)
[2017-12-04 06:11] LABS: ADD MAN DIFF? NO
[2017-12-04 06:14] LABS: BASOPHILS % 0.3 % (0.0-2.0); EOSINOPHILS # 0.1 10^3/ul (0.0-0.5); EOSINOPHILS % 0.9 % (0.0-7.0); HEMATOCRIT 31.3 % (37.0-47.0); HEMOGLOBIN 10.5 g/dl (12.0-16.0); LYMPHOCYTES # 2.2 10^3/ul (0.8-2.9); LYMPHOCYTES % 19.3 % (15.0-51.0); MEAN CORPUSCULAR HEMOGLOBIN 28.1 pg (29.0-33.0); MEAN CORPUSCULAR HGB CONC 33.5 g/dl (32.0-37.0); MEAN CORPUSCULAR VOLUME 83.7 fl (82.0-101.0); MEAN PLATELET VOLUME 9.1 fl (7.4-10.4); MONOCYTES % 8.8 % (0.0-11.0); NEUTROPHIL # 7.9 10^3/ul (1.6-7.5); NEUTROPHILS % 69.8 % (39.0-77.0); PLATELET COUNT 314 10^3/UL (140-415); RED BLOOD COUNT 3.74 10^6/ul (4.20-5.40); RED CELL DISTRIBUTION WIDTH 12.5 % (11.5-14.5)
[2017-12-04 06:14] LABS: WHITE BLOOD COUNT 11.3 10^3/ul (4.8-10.8)
[2017-12-04 07:00] LABS: ANION GAP 15 (8-16); BLOOD UREA NITROGEN 21 mg/dl (7-20); CALCIUM 9.3 mg/dl (8.4-10.2); CARBON DIOXIDE 27 mmol/L (21-31); CHLORIDE 100 mmol/L (97-110); CREATININE 0.98 mg/dl (0.44-1.00); GLUCOSE 260 mg/dl (70-220); POTASSIUM 4.3 mmol/L (3.5-5.1); SODIUM 138 mmol/L (135-144)
[2017-12-04] MEDS: INSULIN ASPART [NOVOLOG] 3 ML PEN SC ×7 (08:00→21:00)
[2017-12-04] MEDS: metFORMIN 500 MG TAB PO ×2 (08:00→17:21)
[2017-12-04] MEDS: NIFEdipine (XL) 30 MG TAB PO (08:56)
[2017-12-04] MEDS: LINAGLIPTIN 5 MG TABLET PO (08:56)
[2017-12-04] MEDS: ASPIRIN (EC) 325 MG TAB PO (08:56)
[2017-12-04] MEDS: ISOSORBIDE MONONITRATE(SR)30 MG TAB PO (08:57)
[2017-12-04] MEDS: METOPROLOL 100 MG TAB PO ×2 (08:57→21:19)
[2017-12-04] MEDS: LOSARTAN 50 MG TAB PO (08:57)
[2017-12-04] MEDS: HYDROCHLOROTHIAZIDE 25 MG TAB PO (08:58)
[2017-12-04] MEDS: REGADENOSON 0.4 MG/5 ML SYG (11:49)
[2017-12-04] MEDS: INSULIN GLARGINE [LANtus] 3 ML PEN SC (21:23)
[2017-12-05] MEDS: ACCU-CHEK XX ×2 (01:42→02:58)
[2017-12-05] MEDS: PANTOPRAZOLE (EC) 40 MG TAB PO (05:41)
[2017-12-05] MEDS: ACETAMINOPHEN 500 MG TAB PO (05:44)
[2017-12-05 07:49] LABS: ADD MAN DIFF? NO
[2017-12-05 07:54] LABS: WHITE BLOOD COUNT 11.3 10^3/ul (4.8-10.8)
[2017-12-05 07:54] LABS: BASOPHIL # 0.1 10^3/ul (0.0-0.1); BASOPHILS % 0.6 % (0.0-2.0); EOSINOPHILS # 0.2 10^3/ul (0.0-0.5); EOSINOPHILS % 1.3 % (0.0-7.0); LYMPHOCYTES # 2.2 10^3/ul (0.8-2.9); LYMPHOCYTES % 19.6 % (15.0-51.0); MEAN CORPUSCULAR HEMOGLOBIN 27.9 pg (29.0-33.0); MEAN CORPUSCULAR HGB CONC 33.3 g/dl (32.0-37.0); MEAN CORPUSCULAR VOLUME 83.8 fl (82.0-101.0); MONOCYTE # 0.8 10^3/ul (0.3-0.9); MONOCYTES % 7.2 % (0.0-11.0); NEUTROPHILS % 70.6 % (39.0-77.0); PLATELET COUNT 339 10^3/UL (140-415); RED BLOOD COUNT 3.94 10^6/ul (4.20-5.40); RED CELL DISTRIBUTION WIDTH 12.5 % (11.5-14.5)
[2017-12-05] MEDS: NIFEdipine (XL) 30 MG TAB PO (08:13)
[2017-12-05] MEDS: ISOSORBIDE MONONITRATE(SR)30 MG TAB PO (08:14)
[2017-12-05] MEDS: METOPROLOL 100 MG TAB PO ×2 (08:14→21:12)
[2017-12-05] MEDS: ASPIRIN (EC) 325 MG TAB PO (08:14)
[2017-12-05] MEDS: LINAGLIPTIN 5 MG TABLET PO (08:14)
[2017-12-05] MEDS: HYDROCHLOROTHIAZIDE 25 MG TAB PO (08:14)
[2017-12-05] MEDS: LOSARTAN 50 MG TAB PO (08:14)
[2017-12-05 08:15] LABS: ANION GAP 17 (8-16); BLOOD UREA NITROGEN 27 mg/dl (7-20); CALCIUM 9.2 mg/dl (8.4-10.2); CARBON DIOXIDE 26 mmol/L (21-31); CHLORIDE 99 mmol/L (97-110); CREATININE 1.04 mg/dl (0.44-1.00); GLUCOSE 221 mg/dl (70-220); POTASSIUM 4.4 mmol/L (3.5-5.1); SODIUM 138 mmol/L (135-144)
[2017-12-05] MEDS: metFORMIN 500 MG TAB PO ×2 (08:15→17:13)
[2017-12-05] MEDS: INSULIN ASPART [NOVOLOG] 3 ML PEN SC ×7 (08:19→21:00)
[2017-12-05] MEDS: SOD CHLORIDE 0.45% 1,000 ML IV (12:00)
[2017-12-05] MEDS: EMPAGLIFLOZIN 10 MG TABLET PO ×2 (12:01→13:53)
[2017-12-05] MEDS: INSULIN GLARGINE [LANtus] 3 ML PEN SC (21:17)
[2017-12-06] MEDS: HYDROCODONE/APAP (5/325) TAB PO (00:08)
[2017-12-06] MEDS: ACCU-CHEK XX (02:00)
[2017-12-06] MEDS: SOD CHLORIDE 0.45% 1,000 ML IV ×2 (02:14→17:24)
[2017-12-06] MEDS: PANTOPRAZOLE (EC) 40 MG TAB PO (05:13)
[2017-12-06 07:47] LABS: ADD MAN DIFF? NO
[2017-12-06 07:50] LABS: BASOPHIL # 0.1 10^3/ul (0.0-0.1); BASOPHILS % 0.5 % (0.0-2.0); EOSINOPHILS # 0.2 10^3/ul (0.0-0.5); EOSINOPHILS % 2.2 % (0.0-7.0); HEMATOCRIT 30.3 % (37.0-47.0); HEMOGLOBIN 10.3 g/dl (12.0-16.0); LYMPHOCYTES # 2.2 10^3/ul (0.8-2.9); LYMPHOCYTES % 20.3 % (15.0-51.0); MEAN CORPUSCULAR HEMOGLOBIN 28.4 pg (29.0-33.0); MEAN CORPUSCULAR VOLUME 83.5 fl (82.0-101.0); MEAN PLATELET VOLUME 9.1 fl (7.4-10.4); MONOCYTE # 0.9 10^3/ul (0.3-0.9); MONOCYTES % 8.4 % (0.0-11.0); NEUTROPHIL # 7.4 10^3/ul (1.6-7.5); NEUTROPHILS % 67.7 % (39.0-77.0); PLATELET COUNT 322 10^3/UL (140-415); RED BLOOD COUNT 3.63 10^6/ul (4.20-5.40); RED CELL DISTRIBUTION WIDTH 12.4 % (11.5-14.5)
[2017-12-06 07:50] LABS: WHITE BLOOD COUNT 10.9 10^3/ul (4.8-10.8)
[2017-12-06] MEDS: INSULIN ASPART [NOVOLOG] 3 ML PEN SC ×7 (08:00→21:00)
[2017-12-06 08:17] LABS: ANION GAP 17 (8-16); BLOOD UREA NITROGEN 29 mg/dl (7-20); CALCIUM 9.2 mg/dl (8.4-10.2); CARBON DIOXIDE 26 mmol/L (21-31); CHLORIDE 98 mmol/L (97-110); CREATININE 0.93 mg/dl (0.44-1.00); GLUCOSE 141 mg/dl (70-220); POTASSIUM 4.1 mmol/L (3.5-5.1); SODIUM 137 mmol/L (135-144)
[2017-12-06] MEDS: LINAGLIPTIN 5 MG TABLET PO (08:31)
[2017-12-06] MEDS: EMPAGLIFLOZIN 10 MG TABLET PO (08:31)
[2017-12-06] MEDS: NIFEdipine (XL) 30 MG TAB PO (08:33)
[2017-12-06] MEDS: LOSARTAN 50 MG TAB PO (08:34)
[2017-12-06] MEDS: METOPROLOL 100 MG TAB PO ×2 (08:34→21:18)
[2017-12-06] MEDS: ISOSORBIDE MONONITRATE(SR)30 MG TAB PO (08:35)
[2017-12-06] MEDS: metFORMIN 500 MG TAB PO ×2 (08:35→17:32)
[2017-12-06] MEDS: HYDROCHLOROTHIAZIDE 25 MG TAB PO (08:36)
[2017-12-06] MEDS: ASPIRIN (EC) 325 MG TAB PO (08:37)
[2017-12-06] MEDS: INSULIN GLARGINE [LANtus] 3 ML PEN SC (21:22)
[2017-12-07] MEDS: ACCU-CHEK XX (02:00)
[2017-12-07] MEDS: PANTOPRAZOLE (EC) 40 MG TAB PO (05:45)
[2017-12-07] MEDS: SOD CHLORIDE 0.45% 1,000 ML IV (05:45)
[2017-12-07] MEDS: EMPAGLIFLOZIN 10 MG TABLET PO (07:47)
[2017-12-07] MEDS: INSULIN ASPART [NOVOLOG] 3 ML PEN SC ×6 (07:47→17:15)
[2017-12-07] MEDS: metFORMIN 500 MG TAB PO ×2 (07:48→17:15)
[2017-12-07] MEDS: HYDROCHLOROTHIAZIDE 25 MG TAB PO (08:51)
[2017-12-07] MEDS: LINAGLIPTIN 5 MG TABLET PO (08:51)
[2017-12-07] MEDS: LOSARTAN 50 MG TAB PO (08:51)
[2017-12-07] MEDS: ASPIRIN (EC) 325 MG TAB PO (08:51)
[2017-12-07] MEDS: ISOSORBIDE MONONITRATE(SR)30 MG TAB PO (08:51)
[2017-12-07] MEDS: METOPROLOL 100 MG TAB PO (08:52)
[2017-12-07] MEDS: NIFEdipine (XL) 30 MG TAB PO (08:52)
== END 2017-12-07 20:30 | disposition home health service (06) | DRG 313 ==
LOC: MS4 19:33 → E/R 15:06
DX: R07.9 Chest pain, unspecified (principal); I10 Essential (primary) hypertension; D64.9 Anemia, unspecified; E11.69 Type 2 diabetes mellitus with other specified complication; E78.00 Pure hypercholesterolemia, unspecified; E11.65 Type 2 diabetes mellitus with hyperglycemia; R94.31 Abnormal electrocardiogram [ECG] [EKG]; Z79.4 Long term (current) use of insulin; Z79.82 Long term (current) use of aspirin; Z98.890 Other specified postprocedural states
CPT/HCPCS: 71045; 71275; 78452; 80048; 80061; 82550; 82553; 82728; 82962; 83036; 83540; 84439; 84443; 84484; 85025; 85378; 85610; 85730; 86803; 93005; 93017; 93306; 99285-25

== ENCOUNTER 2018-06-08 09:29 | Inpatient (IN) | payer OTHER ==
[2018-06-08] MEDS: SODIUM CHLORIDE 0.9% 1L BAG IV* (10:11)
[2018-06-08 10:22] LABS: ADD MAN DIFF? NO
[2018-06-08 10:43] LABS: ADD UMIC YES; UR ASCORBIC ACID NEGATIVE (NEGATIVE); UR BACTERIA FEW /HPF (NONE SEEN); UR BILIRUBIN (Dip) NEGATIVE (NEGATIVE); UR BLOOD (Dip) NEGATIVE (NEGATIVE); UR CLARITY SLIGHTLY CLOUDY (CLEAR); UR COLOR YELLOW (YELLOW); UR GLUCOSE (Dip) 3+ mg/dL (NEGATIVE); UR KETONES (Dip) TRACE mg/dL (NEGATIVE); UR LEUKOCYTE ESTERASE (Dip) TRACE Leu/ul (NEGATIVE); UR NITRITE (Dip) NEGATIVE (NEGATIVE); UR RBC 2 /HPF (0-5); UR SPECIFIC GRAVITY (Dip) 1.025 (1.003-1.030); UR SQUAMOUS EPITHELIAL CELL MODERATE /HPF (FEW); UR TOTAL PROTEIN (Dip) 3+ mg/dl (NEGATIVE); UR UROBILINOGEN (Dip) NEGATIVE (NEGATIVE); UR WBC 32 /HPF (0-5)
[2018-06-08 10:46] LABS: INR 1.01; PROTIME 13.4 Sec (11.9-14.9)
[2018-06-08 10:47] LABS: PARTIAL THROMBOPLASTIN TIME 33.5 Sec (23.0-35.0)
[2018-06-08 10:48] LABS: ANION GAP 11 (5-13); BLOOD UREA NITROGEN 13 mg/dl (7-20); CALCIUM 9.5 mg/dl (8.4-10.2); CARBON DIOXIDE 28 mmol/L (21-31); CHLORIDE 96 mmol/L (97-110); CREATININE 0.76 mg/dl (0.44-1.00); Estimated GFR > 60 mL/min (>60); GLUCOSE 365 mg/dl (70-220); POTASSIUM 4.1 mmol/L (3.5-5.1); SODIUM 135 mmol/L (135-144)
[2018-06-08 10:58] LABS: WHITE BLOOD COUNT 11.4 10^3/ul (4.8-10.8)
[2018-06-08 10:58] LABS: BASOPHIL # 0.1 10^3/ul (0.0-0.1); BASOPHILS % 0.5 % (0.0-2.0); EOSINOPHILS # 0.2 10^3/ul (0.0-0.5); EOSINOPHILS % 1.8 % (0.0-7.0); HEMATOCRIT 47.5 % (37.0-47.0); HEMOGLOBIN 15.3 g/dl (12.0-16.0); LYMPHOCYTES # 1.7 10^3/ul (0.8-2.9); MEAN CORPUSCULAR HEMOGLOBIN 27.2 pg (29.0-33.0); MEAN CORPUSCULAR HGB CONC 32.2 g/dl (32.0-37.0); MEAN CORPUSCULAR VOLUME 84.5 fl (82.0-101.0); MONOCYTE # 0.8 10^3/ul (0.3-0.9); MONOCYTES % 6.9 % (0.0-11.0); NEUTROPHIL # 8.6 10^3/ul (1.6-7.5); NEUTROPHILS % 75.2 % (39.0-77.0); PLATELET COUNT 412 10^3/UL (140-415); RED BLOOD COUNT 5.62 10^6/ul (4.20-5.40); RED CELL DISTRIBUTION WIDTH 16.1 % (11.5-14.5)
[2018-06-08 10:59] LABS: TROPONIN-I < 0.012 ng/ml (0.000-0.120)
[2018-06-08] MEDS: CEFTRIAXONE 1 GM/50 ML (PMX) 50 ML IVPB (11:25)
[2018-06-08 11:48] LABS: B-TYPE NATRIURETIC PEPTIDE 1750 PG/ML (0-125)
[2018-06-08] MEDS: AZITHROMYCIN 500MG/NS (PMX) 250 ML IVPB (11:52)
[2018-06-08] MEDS ORDERED: ACETAMINOPHEN 325 MG TAB PO (13:00)
[2018-06-08] MEDS ORDERED: ONDANSETRON 4 MG INJ IV (13:00)
[2018-06-08 15:21] LABS: LACTIC ACID 1.3 mmol/L (0.5-2.0)
[2018-06-08] MEDS ORDERED: GLUCAGON 1 MG INJ IM (18:30)
[2018-06-08] MEDS ORDERED: NACL 0.9% 3 ML SYG IV (18:30)
[2018-06-08] MEDS ORDERED: MAGNESIUM HYDROXIDE 30ML CUP PO (18:30)
[2018-06-08] MEDS ORDERED: HYDROCODONE/APAP (5/325) TAB PO (18:30)
[2018-06-08] MEDS ORDERED: DOCUSATE SODIUM 100 MG CAP PO (18:30)
[2018-06-08] MEDS ORDERED: DEXTROSE 50% 50 ML SYRINGE IV ×2 (18:30)
[2018-06-08] MEDS ORDERED: GLUCOSE GEL 15 GRAM TUBE PO (18:30)
[2018-06-08] MEDS: LEVALBUTEROL (NEB) 0.63 MG/3 ML AMP HHN (19:34)
[2018-06-08] MEDS: METOPROLOL 100 MG TAB PO (21:24)
[2018-06-08] MEDS: FAMOTIDINE 20 MG TAB PO (21:25)
[2018-06-08] MEDS: INSULIN ASPART [NOVOLOG] 3 ML PEN SC (21:54)
[2018-06-08] MEDS: INSULIN GLARGINE [LANTus] (100 UNITS/ML) SYG SC (21:54)
[2018-06-09] MEDS: GUAIFENESIN/CODEINE 5ML CUP PO ×2 (01:52→22:04)
[2018-06-09] MEDS: PANTOPRAZOLE (EC) 40 MG TAB PO (06:20)
[2018-06-09 06:41] LABS: ADD MAN DIFF? NO
[2018-06-09 07:13] LABS: WHITE BLOOD COUNT 7.5 10^3/ul (4.8-10.8)
[2018-06-09 07:13] LABS: BASOPHIL # 0.1 10^3/ul (0.0-0.1); BASOPHILS % 0.8 % (0.0-2.0); EOSINOPHILS # 0.3 10^3/ul (0.0-0.5); EOSINOPHILS % 3.8 % (0.0-7.0); HEMATOCRIT 40.7 % (37.0-47.0); HEMOGLOBIN 13.7 g/dl (12.0-16.0); LYMPHOCYTES # 1.9 10^3/ul (0.8-2.9); LYMPHOCYTES % 25.1 % (15.0-51.0); MEAN CORPUSCULAR HGB CONC 33.7 g/dl (32.0-37.0); MEAN CORPUSCULAR VOLUME 86.2 fl (82.0-101.0); MEAN PLATELET VOLUME 8.9 fl (7.4-10.4); MONOCYTE # 0.8 10^3/ul (0.3-0.9); MONOCYTES % 10.1 % (0.0-11.0); NEUTROPHIL # 4.5 10^3/ul (1.6-7.5); NEUTROPHILS % 59.8 % (39.0-77.0); PLATELET COUNT 362 10^3/UL (140-415); RED BLOOD COUNT 4.72 10^6/ul (4.20-5.40); RED CELL DISTRIBUTION WIDTH 16.6 % (11.5-14.5)
[2018-06-09 07:17] LABS: ALANINE AMINOTRANSFERASE 33 IU/L (13-69); ALBUMIN 3.6 g/dl (3.3-4.9); ALBUMIN/GLOBULIN RATIO 1.12; ALKALINE PHOSPHATASE 116 IU/L (42-121); ANION GAP 10 (5-13); ASPARTATE AMINO TRANSFERASE 35 IU/L (15-46); BILIRUBIN,INDIRECT 0.3 mg/dl (0-1.1); BILIRUBIN,TOTAL 0.3 mg/dl (0.2-1.3); BLOOD UREA NITROGEN 11 mg/dl (7-20); CALCIUM 9.3 mg/dl (8.4-10.2); CARBON DIOXIDE 28 mmol/L (21-31); CHLORIDE 102 mmol/L (97-110); CREATININE 0.61 mg/dl (0.44-1.00); Estimated GFR > 60 mL/min (>60); GLUCOSE 190 mg/dl (70-220); SODIUM 140 mmol/L (135-144); TOTAL PROTEIN 6.8 g/dl (6.1-8.1)
[2018-06-09 07:20] LABS: HEMOGLOBIN A1C 10.2 % (0-5.9)
[2018-06-09] MEDS: metFORMIN 500 MG TAB PO ×2 (07:31→17:34)
[2018-06-09] MEDS: INSULIN ASPART [NOVOLOG] 3 ML PEN SC ×7 (07:36→20:51)
[2018-06-09] MEDS: NIFEdipine (XL) 30 MG TAB PO (09:16)
[2018-06-09] MEDS: LINAGLIPTIN 5 MG TABLET PO (09:16)
[2018-06-09] MEDS: ASPIRIN (EC) 81 MG TAB PO (09:16)
[2018-06-09] MEDS: ISOSORBIDE MONONITRATE(SR)30 MG TAB PO (09:16)
[2018-06-09] MEDS: HYDROCHLOROTHIAZIDE 25 MG TAB PO (09:16)
[2018-06-09] MEDS: FAMOTIDINE 20 MG TAB PO ×2 (09:16→20:45)
[2018-06-09] MEDS: METOPROLOL 100 MG TAB PO ×2 (09:17→20:46)
[2018-06-09] MEDS: LOSARTAN 50 MG TAB PO (09:17)
[2018-06-09] MEDS: ENOXAPARIN 40 MG/0.4 ML SYG SC (09:23)
[2018-06-09] MEDS: CEFTRIAXONE 1 GM/50 ML (PMX) 50 ML IVPB (10:53)
[2018-06-09] MEDS: AZITHROMYCIN 250 MG in SOD CHLORIDE 0.9% 250 ML IVPB (12:09)
[2018-06-09] MEDS ORDERED: METOPROLOL 5 MG INJ IV (14:00)
[2018-06-09] MEDS: ACCU-CHEK XX ×2 (17:34→19:55)
[2018-06-09 19:30] LABS: TROPONIN-I < 0.012 ng/ml (0.000-0.120)
[2018-06-09] MEDS: ACETAMINOPHEN 325 MG TAB PO (20:45)
[2018-06-09] MEDS: ATORVASTATIN 40 MG TAB PO (20:45)
[2018-06-09] MEDS: INSULIN GLARGINE [LANTus] (100 UNITS/ML) SYG SC (20:50)
[2018-06-09] MEDS: ENOXAPARIN 80 MG/0.8 ML SYG SC (20:53)
[2018-06-09] MEDS ORDERED: ENOXAPARIN 40 MG/0.4 ML SYG SC (21:00)
[2018-06-10 01:20] LABS: TROPONIN-I < 0.012 ng/ml (0.000-0.120)
[2018-06-10] MEDS: PANTOPRAZOLE (EC) 40 MG TAB PO (05:02)
[2018-06-10] MEDS: GUAIFENESIN/CODEINE 5ML CUP PO ×3 (05:02→20:42)
[2018-06-10 06:34] LABS: ADD MAN DIFF? NO
[2018-06-10 06:44] LABS: BASOPHIL # 0.1 10^3/ul (0.0-0.1); BASOPHILS % 0.9 % (0.0-2.0); EOSINOPHILS # 0.4 10^3/ul (0.0-0.5); EOSINOPHILS % 4.8 % (0.0-7.0); LYMPHOCYTES # 1.7 10^3/ul (0.8-2.9); LYMPHOCYTES % 20.5 % (15.0-51.0); MEAN CORPUSCULAR VOLUME 87.8 fl (82.0-101.0); MONOCYTE # 0.7 10^3/ul (0.3-0.9); MONOCYTES % 8.5 % (0.0-11.0); NEUTROPHIL # 5.4 10^3/ul (1.6-7.5); NEUTROPHILS % 65.1 % (39.0-77.0); PLATELET COUNT 344 10^3/UL (140-415); RED CELL DISTRIBUTION WIDTH 16.3 % (11.5-14.5)
[2018-06-10 06:44] LABS: WHITE BLOOD COUNT 8.2 10^3/ul (4.8-10.8)
[2018-06-10 07:00] LABS: ANION GAP 9 (5-13); BLOOD UREA NITROGEN 17 mg/dl (7-20); CALCIUM 9.3 mg/dl (8.4-10.2); CARBON DIOXIDE 28 mmol/L (21-31); CHLORIDE 100 mmol/L (97-110); CREATININE 0.69 mg/dl (0.44-1.00); Estimated GFR > 60 mL/min (>60); GLUCOSE 125 mg/dl (70-220); POTASSIUM 3.6 mmol/L (3.5-5.1); SODIUM 137 mmol/L (135-144)
[2018-06-10 07:22] LABS: HEMOGLOBIN 13.8 g/dl (12.0-16.0); MEAN CORPUSCULAR HEMOGLOBIN 41.8 pg (29.0-33.0); MEAN CORPUSCULAR HGB CONC 47.6 g/dl (32.0-37.0); POSITIVE DIFF @See below; RED BLOOD COUNT 3.28 10^6/ul (4.20-5.40)
[2018-06-10] MEDS: ACCU-CHEK XX ×6 (07:31→20:40)
[2018-06-10] MEDS: metFORMIN 500 MG TAB PO ×2 (07:31→17:39)
[2018-06-10] MEDS: INSULIN ASPART [NOVOLOG] 3 ML PEN SC ×7 (07:35→20:40)
[2018-06-10] MEDS: FAMOTIDINE 20 MG TAB PO ×2 (09:18→20:44)
[2018-06-10] MEDS: LINAGLIPTIN 5 MG TABLET PO (09:19)
[2018-06-10] MEDS: HYDROCHLOROTHIAZIDE 25 MG TAB PO (09:19)
[2018-06-10] MEDS: ASPIRIN (EC) 81 MG TAB PO (09:20)
[2018-06-10] MEDS: METOPROLOL 100 MG TAB PO ×2 (09:20→20:44)
[2018-06-10] MEDS: ISOSORBIDE MONONITRATE(SR)30 MG TAB PO (09:20)
[2018-06-10] MEDS: ENOXAPARIN 80 MG/0.8 ML SYG SC ×2 (09:24→20:50)
[2018-06-10] MEDS: LOSARTAN 50 MG TAB PO (09:31)
[2018-06-10] MEDS: NIFEdipine (XL) 30 MG TAB PO (09:31)
[2018-06-10] MEDS: CEFTRIAXONE 1 GM/50 ML (PMX) 50 ML IVPB (10:30)
[2018-06-10] MEDS: AZITHROMYCIN 250 MG in SOD CHLORIDE 0.9% 250 ML IVPB (11:20)
[2018-06-10] MEDS: ACETAMINOPHEN 325 MG TAB PO (20:43)
[2018-06-10] MEDS: ATORVASTATIN 40 MG TAB PO (20:44)
[2018-06-10] MEDS: INSULIN GLARGINE [LANTus] (100 UNITS/ML) SYG SC ×2 (21:00→22:35)
[2018-06-11] MEDS: PANTOPRAZOLE (EC) 40 MG TAB PO (05:03)
[2018-06-11] MEDS: ACCU-CHEK XX ×6 (08:16→19:47)
[2018-06-11] MEDS: INSULIN ASPART [NOVOLOG] 3 ML PEN SC ×8 (08:25→20:40)
[2018-06-11] MEDS: metFORMIN 500 MG TAB PO ×2 (08:27→17:28)
[2018-06-11] MEDS: ONDANSETRON 4 MG INJ IV (08:27)
[2018-06-11] MEDS: LINAGLIPTIN 5 MG TABLET PO (08:27)
[2018-06-11] MEDS: NIFEdipine (XL) 30 MG TAB PO (08:28)
[2018-06-11] MEDS: FAMOTIDINE 20 MG TAB PO ×2 (08:28→20:15)
[2018-06-11] MEDS: HYDROCHLOROTHIAZIDE 25 MG TAB PO (08:28)
[2018-06-11] MEDS: ASPIRIN (EC) 81 MG TAB PO (08:29)
[2018-06-11] MEDS: LOSARTAN 50 MG TAB PO (08:29)
[2018-06-11] MEDS: METOPROLOL 100 MG TAB PO ×2 (08:29→20:15)
[2018-06-11] MEDS: ISOSORBIDE MONONITRATE(SR)30 MG TAB PO (08:29)
[2018-06-11] MEDS: ENOXAPARIN 80 MG/0.8 ML SYG SC ×2 (08:55→20:38)
[2018-06-11] MEDS: CEFTRIAXONE 1 GM/50 ML (PMX) 50 ML IVPB (11:29)
[2018-06-11] MEDS: AZITHROMYCIN 250 MG in SOD CHLORIDE 0.9% 250 ML IVPB (13:07)
[2018-06-11] MEDS: ATORVASTATIN 40 MG TAB PO (20:15)
[2018-06-11] MEDS: INSULIN GLARGINE [LANTus] (100 UNITS/ML) SYG SC (20:49)
[2018-06-12] MEDS: PANTOPRAZOLE (EC) 40 MG TAB PO (05:02)
[2018-06-12] MEDS: INSULIN ASPART [NOVOLOG] 3 ML PEN SC ×8 (07:55→21:00)
[2018-06-12] MEDS: ACCU-CHEK XX ×6 (08:11→19:55)
[2018-06-12] MEDS: ONDANSETRON 4 MG INJ IV (08:11)
[2018-06-12] MEDS: ASPIRIN (EC) 81 MG TAB PO (08:12)
[2018-06-12] MEDS: FAMOTIDINE 20 MG TAB PO ×2 (08:12→20:27)
[2018-06-12] MEDS: LINAGLIPTIN 5 MG TABLET PO (08:12)
[2018-06-12] MEDS: metFORMIN 500 MG TAB PO ×2 (08:12→17:42)
[2018-06-12] MEDS: HYDROCHLOROTHIAZIDE 25 MG TAB PO (08:13)
[2018-06-12] MEDS: ISOSORBIDE MONONITRATE(SR)30 MG TAB PO (08:13)
[2018-06-12] MEDS: LOSARTAN 50 MG TAB PO (08:13)
[2018-06-12] MEDS: NIFEdipine (XL) 30 MG TAB PO (08:13)
[2018-06-12] MEDS: METOPROLOL 100 MG TAB PO ×2 (08:14→20:27)
[2018-06-12] MEDS: ENOXAPARIN 80 MG/0.8 ML SYG SC ×2 (08:23→20:48)
[2018-06-12] MEDS: CEFTRIAXONE 1 GM/50 ML (PMX) 50 ML IVPB (10:27)
[2018-06-12] MEDS: GLUCOSE GEL 15 GRAM TUBE BUCCAL (10:33)
[2018-06-12] MEDS: GLUCOSE GEL 15 GRAM TUBE PO (10:47)
[2018-06-12] MEDS: AZITHROMYCIN 250 MG in SOD CHLORIDE 0.9% 250 ML IVPB (11:57)
[2018-06-12] MEDS: ZOLPIDEM 5 MG TAB PO (20:27)
[2018-06-12] MEDS: ATORVASTATIN 40 MG TAB PO (20:28)
[2018-06-12] MEDS: INSULIN GLARGINE [LANTus] (100 UNITS/ML) SYG SC (21:02)
[2018-06-13] MEDS: PANTOPRAZOLE (EC) 40 MG TAB PO (05:34)
[2018-06-13 05:59] LABS: ADD MAN DIFF? NO
[2018-06-13 06:36] LABS: ALANINE AMINOTRANSFERASE 22 IU/L (13-69); ALBUMIN 3.7 g/dl (3.3-4.9); ALKALINE PHOSPHATASE 98 IU/L (42-121); ANION GAP 7 (5-13); ASPARTATE AMINO TRANSFERASE 27 IU/L (15-46); BILIRUBIN,INDIRECT 0.2 mg/dl (0-1.1); BILIRUBIN,TOTAL 0.2 mg/dl (0.2-1.3); BLOOD UREA NITROGEN 18 mg/dl (7-20); CALCIUM 9.1 mg/dl (8.4-10.2); CARBON DIOXIDE 31 mmol/L (21-31); CHLORIDE 99 mmol/L (97-110); CREATININE 0.67 mg/dl (0.44-1.00); Estimated GFR > 60 mL/min (>60); GLUCOSE 78 mg/dl (70-220); POTASSIUM 3.5 mmol/L (3.5-5.1); SODIUM 137 mmol/L (135-144); TOTAL PROTEIN 7.4 g/dl (6.1-8.1)
[2018-06-13 07:32] LABS: BASOPHIL # 0.1 10^3/ul (0.0-0.1); BASOPHILS % 0.6 % (0.0-2.0); EOSINOPHILS # 0.3 10^3/ul (0.0-0.5); EOSINOPHILS % 2.4 % (0.0-7.0); HEMATOCRIT 42.2 % (37.0-47.0); HEMOGLOBIN 13.8 g/dl (12.0-16.0); LYMPHOCYTES % 19.4 % (15.0-51.0); MEAN CORPUSCULAR HEMOGLOBIN 27.2 pg (29.0-33.0); MEAN CORPUSCULAR HGB CONC 32.7 g/dl (32.0-37.0); MEAN CORPUSCULAR VOLUME 83.2 fl (82.0-101.0); MONOCYTE # 0.9 10^3/ul (0.3-0.9); NEUTROPHILS % 68.1 % (39.0-77.0); PLATELET COUNT 374 10^3/UL (140-415); RED BLOOD COUNT 5.07 10^6/ul (4.20-5.40); RED CELL DISTRIBUTION WIDTH 15.1 % (11.5-14.5)
[2018-06-13 07:32] LABS: WHITE BLOOD COUNT 10.3 10^3/ul (4.8-10.8)
[2018-06-13] MEDS: INSULIN ASPART [NOVOLOG] 3 ML PEN SC ×7 (07:55→21:00)
[2018-06-13] MEDS: ACCU-CHEK XX ×6 (08:02→20:02)
[2018-06-13] MEDS: ISOSORBIDE MONONITRATE(SR)30 MG TAB PO (08:05)
[2018-06-13] MEDS: LOSARTAN 50 MG TAB PO (08:06)
[2018-06-13] MEDS: ASPIRIN (EC) 81 MG TAB PO (08:06)
[2018-06-13] MEDS: NIFEdipine (XL) 30 MG TAB PO (08:06)
[2018-06-13] MEDS: FAMOTIDINE 20 MG TAB PO ×2 (08:06→20:19)
[2018-06-13] MEDS: metFORMIN 500 MG TAB PO ×2 (08:06→17:33)
[2018-06-13] MEDS: HYDROCHLOROTHIAZIDE 25 MG TAB PO (08:06)
[2018-06-13] MEDS: METOPROLOL 100 MG TAB PO ×2 (08:07→20:20)
[2018-06-13] MEDS: LINAGLIPTIN 5 MG TABLET PO (08:07)
[2018-06-13] MEDS: ENOXAPARIN 80 MG/0.8 ML SYG SC ×2 (08:14→20:49)
[2018-06-13] MEDS: CEFTRIAXONE 1 GM/50 ML (PMX) 50 ML IVPB (12:05)
[2018-06-13] MEDS: AZITHROMYCIN 250 MG in SOD CHLORIDE 0.9% 250 ML IVPB (12:45)
[2018-06-13] MEDS: metroNIDAZOLE 500 MG TAB PO ×2 (13:54→21:18)
[2018-06-13] MEDS: ONDANSETRON 4 MG INJ IV (18:42)
[2018-06-13] MEDS: ATORVASTATIN 40 MG TAB PO (20:19)
[2018-06-13] MEDS: INSULIN GLARGINE [LANTus] (100 UNITS/ML) SYG SC (21:16)
[2018-06-14] MEDS: metroNIDAZOLE 500 MG TAB PO ×2 (05:07→13:49)
[2018-06-14] MEDS: PANTOPRAZOLE (EC) 40 MG TAB PO (05:07)
[2018-06-14] MEDS: GUAIFENESIN/CODEINE 5ML CUP PO ×2 (06:12→11:41)
[2018-06-14] MEDS: INSULIN ASPART [NOVOLOG] 3 ML PEN SC ×4 (07:55→11:38)
[2018-06-14] MEDS: ACCU-CHEK XX ×4 (08:07→13:46)
[2018-06-14] MEDS: metFORMIN 500 MG TAB PO (08:08)
[2018-06-14] MEDS: ASPIRIN (EC) 81 MG TAB PO (08:08)
[2018-06-14] MEDS: ISOSORBIDE MONONITRATE(SR)30 MG TAB PO (08:08)
[2018-06-14] MEDS: HYDROCHLOROTHIAZIDE 25 MG TAB PO (08:09)
[2018-06-14] MEDS: NIFEdipine (XL) 30 MG TAB PO (08:09)
[2018-06-14] MEDS: METOPROLOL 100 MG TAB PO (08:09)
[2018-06-14] MEDS: FAMOTIDINE 20 MG TAB PO (08:09)
[2018-06-14] MEDS: LOSARTAN 50 MG TAB PO (08:10)
[2018-06-14] MEDS: LINAGLIPTIN 5 MG TABLET PO (08:10)
[2018-06-14] MEDS: ENOXAPARIN 80 MG/0.8 ML SYG SC (08:15)
[2018-06-14] MEDS: CEFTRIAXONE 1 GM/50 ML (PMX) 50 ML IVPB (10:51)
== END 2018-06-14 16:06 | disposition home or self-care (01) | DRG 871 ==
LOC: E/R 09:29 → TEL 12:35
PROVIDERS: Internal Medicine
DX: A41.9 Sepsis, unspecified organism (principal); J18.9 Pneumonia, unspecified organism; N39.0 Urinary tract infection, site not specified; I48.91 Unspecified atrial fibrillation; I25.2 Old myocardial infarction; I11.0 Hypertensive heart disease with heart failure; I50.9 Heart failure, unspecified; I25.10 Atherosclerotic heart disease of native coronary artery without angina pectoris; K21.9 Gastro-esophageal reflux disease without esophagitis; E11.65 Type 2 diabetes mellitus with hyperglycemia; E11.69 Type 2 diabetes mellitus with other specified complication; H40.9 Unspecified glaucoma; E78.5 Hyperlipidemia, unspecified; Z91.19 Patient's noncompliance with other medical treatment and regimen; E11.3599 Type 2 diabetes mellitus with proliferative diabetic retinopathy without macular edema, unspecified eye; E11.42 Type 2 diabetes mellitus with diabetic polyneuropathy; B96.89 Other specified bacterial agents as the cause of diseases classified elsewhere; Z79.4 Long term (current) use of insulin; Z79.82 Long term (current) use of aspirin
CPT/HCPCS: 36415; 71045; 80048; 80053; 81001; 82962; 83036; 83605; 83880; 84443; 84484; 85025; 85610; 85730; 87040; 87086; 87400; 93005; 93306; 94664; 96361; 96365; 96367; 99291-25

== ENCOUNTER 2018-07-13 20:17 | Inpatient (IN) | payer OTHER ==
[2018-07-13] MEDS: SOD CHLORIDE 0.9% 1,000 ML IV (01:00)
[2018-07-14 00:24] LABS: ADD MAN DIFF? NO
[2018-07-14 00:25] LABS: WHITE BLOOD COUNT 14.4 10^3/ul (4.8-10.8)
[2018-07-14 00:25] LABS: BASOPHILS % 0.2 % (0.0-2.0); HEMATOCRIT 42.6 % (37.0-47.0); HEMOGLOBIN 14.8 g/dl (12.0-16.0); LYMPHOCYTES # 0.9 10^3/ul (0.8-2.9); LYMPHOCYTES % 6.3 % (15.0-51.0); MEAN CORPUSCULAR HGB CONC 34.7 g/dl (32.0-37.0); MEAN CORPUSCULAR VOLUME 83.5 fl (82.0-101.0); MEAN PLATELET VOLUME 9.1 fl (7.4-10.4); MONOCYTE # 0.5 10^3/ul (0.3-0.9); MONOCYTES % 3.4 % (0.0-11.0); NEUTROPHIL # 12.7 10^3/ul (1.6-7.5); NEUTROPHILS % 87.9 % (39.0-77.0); PLATELET COUNT 341 10^3/UL (140-415); RED CELL DISTRIBUTION WIDTH 16.1 % (11.5-14.5)
[2018-07-14] MEDS: SODIUM CHLORIDE 0.9% 1L BAG IV* (00:27)
[2018-07-14] MEDS: ONDANSETRON 4 MG INJ IV (00:27)
[2018-07-14] MEDS: CEFEPIME 2GM/50 ML (PMX) 50 ML IVPB (00:28)
[2018-07-14] MEDS: morphine 2 MG INJ IV (00:28)
[2018-07-14 00:50] LABS: ALANINE AMINOTRANSFERASE 79 IU/L (13-69); ALBUMIN 4.9 g/dl (3.3-4.9); ALKALINE PHOSPHATASE 123 IU/L (42-121); ANION GAP 11 (5-13); ASPARTATE AMINO TRANSFERASE 91 IU/L (15-46); BILIRUBIN,INDIRECT 0.1 mg/dl (0-1.1); BILIRUBIN,TOTAL 0.1 mg/dl (0.2-1.3); BLOOD UREA NITROGEN 30 mg/dl (7-20); CALCIUM 10.2 mg/dl (8.4-10.2); CARBON DIOXIDE 30 mmol/L (21-31); CHLORIDE 94 mmol/L (97-110); Estimated GFR 41 mL/min (>60); POTASSIUM 4.9 mmol/L (3.5-5.1); SODIUM 135 mmol/L (135-144); TOTAL PROTEIN 8.4 g/dl (6.1-8.1)
[2018-07-14 00:53] LABS: GLUCOSE 563 mg/dl (70-220)
[2018-07-14 01:02] LABS: TROPONIN-I < 0.012 ng/ml (0.000-0.120)
[2018-07-14 01:16] LABS: LIPASE 2666 U/L (23-300)
[2018-07-14] MEDS: VANCOMYCIN 1 GM (PMX) 250 ML IVPB (02:26)
[2018-07-14] MEDS ORDERED: morphine 4 MG/ML VIAL IV (07:00)
[2018-07-14 07:13] LABS: LACTIC ACID 2.4 mmol/L (0.5-2.0)
[2018-07-14] MEDS ORDERED: DEXTROSE 50% 50 ML SYRINGE IV ×2 (07:30)
[2018-07-14] MEDS ORDERED: GLUCAGON 1 MG INJ IM (07:30)
[2018-07-14] MEDS ORDERED: GLUCOSE GEL 15 GRAM TUBE BUCCAL (07:30)
[2018-07-14] MEDS ORDERED: GLUCOSE GEL 15 GRAM TUBE PO ×2 (07:30)
[2018-07-14] MEDS: INSULIN ASPART [NOVOLOG] 3 ML PEN SC ×3 (07:55→18:11)
[2018-07-14] MEDS: MEROPENEM 1 GM/50ML(PMX) 50 ML IVPB ×2 (08:10→20:29)
[2018-07-14] MEDS: NS + KCL 20 MEQ 1,000 ML IV (08:10)
[2018-07-14] MEDS: PANTOPRAZOLE 40 MG INJ IV (08:10)
[2018-07-14] MEDS ORDERED: METOPROLOL 5 MG INJ IV (14:00)
[2018-07-14] MEDS: D5W-0.45 NACL + KCL 20 MEQ 1,000 ML IV (14:12)
[2018-07-14] MEDS: ENOXAPARIN 60 MG/0.6 ML SYG SC (14:24)
[2018-07-14 15:51] LABS: THYROID STIMULATING HORMONE 0.443 MIU/L (0.465-4.680)
[2018-07-14 18:46] LABS: CREATINE KINASE 47 IU/L (23-200)
[2018-07-14 18:58] LABS: CK INDEX 0.9; CK-MB 0.42 ng/ml (0.0-2.4); TROPONIN-I < 0.012 ng/ml (0.000-0.120)
[2018-07-14] MEDS: METOPROLOL 50 MG TAB PO (20:28)
[2018-07-14] MEDS: INSULIN GLARGINE [LANTus] (100 UNITS/ML) SYG SC (20:37)
[2018-07-15] MEDS: INSULIN ASPART [NOVOLOG] 3 ML PEN SC ×5 (00:34→20:58)
[2018-07-15 01:00] LABS: CREATINE KINASE 46 IU/L (23-200)
[2018-07-15 01:13] LABS: CK INDEX 0.7; CK-MB 0.33 ng/ml (0.0-2.4); TROPONIN-I < 0.012 ng/ml (0.000-0.120)
[2018-07-15] MEDS: ACCU-CHEK XX (02:00)
[2018-07-15] MEDS: D5W-0.45 NACL + KCL 20 MEQ 1,000 ML IV (04:17)
[2018-07-15 07:03] LABS: ADD MAN DIFF? NO
[2018-07-15 07:11] LABS: WHITE BLOOD COUNT 13.4 10^3/ul (4.8-10.8)
[2018-07-15 07:11] LABS: BASOPHILS % 0.3 % (0.0-2.0); EOSINOPHILS # 0.1 10^3/ul (0.0-0.5); EOSINOPHILS % 0.4 % (0.0-7.0); HEMATOCRIT 39.4 % (37.0-47.0); HEMOGLOBIN 13.8 g/dl (12.0-16.0); LYMPHOCYTES # 1.7 10^3/ul (0.8-2.9); LYMPHOCYTES % 12.8 % (15.0-51.0); MEAN CORPUSCULAR VOLUME 85.7 fl (82.0-101.0); MONOCYTE # 0.7 10^3/ul (0.3-0.9); MONOCYTES % 5.4 % (0.0-11.0); NEUTROPHIL # 10.8 10^3/ul (1.6-7.5); NEUTROPHILS % 80.7 % (39.0-77.0); PLATELET COUNT 346 10^3/UL (140-415); RED CELL DISTRIBUTION WIDTH 15.9 % (11.5-14.5)
[2018-07-15 07:22] LABS: LIPASE 477 U/L (23-300)
[2018-07-15 07:25] LABS: HEMOGLOBIN A1C 11.1 % (0-5.9)
[2018-07-15 07:27] LABS: ALANINE AMINOTRANSFERASE 44 IU/L (13-69); ALBUMIN 3.8 g/dl (3.3-4.9); ALBUMIN/GLOBULIN RATIO 1.11; ALKALINE PHOSPHATASE 102 IU/L (42-121); AMYLASE 105 U/L (11-123); ANION GAP 4 (5-13); ASPARTATE AMINO TRANSFERASE 33 IU/L (15-46); BILIRUBIN,INDIRECT 0.5 mg/dl (0-1.1); BILIRUBIN,TOTAL 0.5 mg/dl (0.2-1.3); BLOOD UREA NITROGEN 15 mg/dl (7-20); CALCIUM 9.5 mg/dl (8.4-10.2); CARBON DIOXIDE 29 mmol/L (21-31); CHLORIDE 102 mmol/L (97-110); CREATININE 0.89 mg/dl (0.44-1.00); Estimated GFR > 60 mL/min (>60); GLUCOSE 228 mg/dl (70-220); POTASSIUM 4.3 mmol/L (3.5-5.1); SODIUM 135 mmol/L (135-144); TOTAL PROTEIN 7.2 g/dl (6.1-8.1)
[2018-07-15 07:28] LABS: CREATINE KINASE 45 IU/L (23-200)
[2018-07-15 07:38] LABS: CK INDEX 0.6; CK-MB 0.28 ng/ml (0.0-2.4); TROPONIN-I 0.014 ng/ml (0.000-0.120)
[2018-07-15] MEDS: MEROPENEM 1 GM/50ML(PMX) 50 ML IVPB ×2 (08:33→20:46)
[2018-07-15] MEDS: METOPROLOL 50 MG TAB PO ×2 (08:33→20:46)
[2018-07-15 09:52] LABS: CANCER ANTIGEN 19-9 66.3 U/ml (0.0-37.0)
[2018-07-15] MEDS: LUBIPROSTONE 24 MCG CAP PO ×3 (12:11→21:00)
[2018-07-15] MEDS: hydrALAzine 20 MG INJ IV (13:58)
[2018-07-15] MEDS: ENOXAPARIN 60 MG/0.6 ML SYG SC ×2 (14:01→20:58)
[2018-07-15] MEDS: ACETAMINOPHEN 325 MG TAB PO ×2 (14:55→21:05)
[2018-07-15 16:26] LABS: CHOLESTEROL 129 mg/dl (100-200)
[2018-07-15 16:26] LABS: CHOL/HDL RATIO 3.7 RATIO; HDL CHOLESTEROL 34 mg/dl (35-98); LDL CHOLESTEROL,CALCULATED 41 mg/dl; TRIGLYCERIDES 270 mg/dl (0-149)
[2018-07-15] MEDS: metFORMIN 500 MG TAB PO (17:15)
[2018-07-15 20:17] LABS: CHOLESTEROL 133 mg/dl (100-200)
[2018-07-15 20:17] LABS: CHOL/HDL RATIO 4.4 RATIO; HDL CHOLESTEROL 30 mg/dl (35-98); LDL CHOLESTEROL,CALCULATED 68 mg/dl; TRIGLYCERIDES 176 mg/dl (0-149)
[2018-07-15] MEDS: ATORVASTATIN 40 MG TAB PO (20:45)
[2018-07-15] MEDS: METOPROLOL 100 MG TAB PO (20:46)
[2018-07-15] MEDS: INSULIN GLARGINE [LANTus] (100 UNITS/ML) SYG SC (20:57)
[2018-07-16] MEDS: ACCU-CHEK XX (02:00)
[2018-07-16 08:42] LABS: ALANINE AMINOTRANSFERASE 37 IU/L (13-69); ALBUMIN 3.8 g/dl (3.3-4.9); ALBUMIN/GLOBULIN RATIO 1.11; ALKALINE PHOSPHATASE 113 IU/L (42-121); ANION GAP 8 (5-13); ASPARTATE AMINO TRANSFERASE 30 IU/L (15-46); BILIRUBIN,INDIRECT 0.7 mg/dl (0-1.1); BILIRUBIN,TOTAL 0.7 mg/dl (0.2-1.3); BLOOD UREA NITROGEN 16 mg/dl (7-20); CALCIUM 9.7 mg/dl (8.4-10.2); CARBON DIOXIDE 29 mmol/L (21-31); CHLORIDE 100 mmol/L (97-110); CREATININE 0.73 mg/dl (0.44-1.00); Estimated GFR > 60 mL/min (>60); GLUCOSE 168 mg/dl (70-220); LIPASE 238 U/L (23-300); POTASSIUM 3.7 mmol/L (3.5-5.1); SODIUM 137 mmol/L (135-144); TOTAL PROTEIN 7.2 g/dl (6.1-8.1)
[2018-07-16] MEDS: INSULIN ASPART [NOVOLOG] 3 ML PEN SC ×4 (08:59→20:18)
[2018-07-16] MEDS ORDERED: ASPIRIN (EC) 81 MG TAB PO (09:00)
[2018-07-16] MEDS: MEROPENEM 1 GM/50ML(PMX) 50 ML IVPB (09:00)
[2018-07-16] MEDS: ENOXAPARIN 60 MG/0.6 ML SYG SC ×2 (09:00→20:31)
[2018-07-16] MEDS: EMPAGLIFLOZIN 10 MG TABLET PO (09:01)
[2018-07-16] MEDS: LOSARTAN 50 MG TAB PO (09:01)
[2018-07-16] MEDS: NIFEdipine (XL) 30 MG TAB PO (09:01)
[2018-07-16] MEDS: HYDROCHLOROTHIAZIDE 25 MG TAB PO (09:01)
[2018-07-16] MEDS: METOPROLOL 50 MG TAB PO ×2 (09:02→20:17)
[2018-07-16] MEDS: LUBIPROSTONE 24 MCG CAP PO ×2 (09:02→20:16)
[2018-07-16] MEDS: metFORMIN 500 MG TAB PO ×2 (09:02→18:26)
[2018-07-16] MEDS: METOPROLOL 100 MG TAB PO ×2 (09:03→20:17)
[2018-07-16] MEDS: ATORVASTATIN 40 MG TAB PO (20:16)
[2018-07-16] MEDS: INSULIN GLARGINE [LANTus] (100 UNITS/ML) SYG SC (20:31)
[2018-07-17] MEDS: ACCU-CHEK XX (02:00)
[2018-07-17] MEDS: NIFEdipine (XL) 30 MG TAB PO (08:08)
[2018-07-17] MEDS: metFORMIN 500 MG TAB PO ×2 (08:08→17:08)
[2018-07-17] MEDS: LUBIPROSTONE 24 MCG CAP PO ×2 (08:09→20:27)
[2018-07-17] MEDS: LOSARTAN 50 MG TAB PO (08:10)
[2018-07-17] MEDS: HYDROCHLOROTHIAZIDE 25 MG TAB PO (08:10)
[2018-07-17] MEDS: METOPROLOL 100 MG TAB PO ×2 (08:11→20:28)
[2018-07-17] MEDS: EMPAGLIFLOZIN 10 MG TABLET PO (08:11)
[2018-07-17] MEDS: METOPROLOL 50 MG TAB PO ×2 (08:12→20:27)
[2018-07-17] MEDS: ACETAMINOPHEN 325 MG TAB PO (08:13)
[2018-07-17] MEDS: INSULIN ASPART [NOVOLOG] 3 ML PEN SC ×4 (08:14→20:37)
[2018-07-17] MEDS: ENOXAPARIN 60 MG/0.6 ML SYG SC ×2 (08:15→20:37)
[2018-07-17] MEDS: ONDANSETRON 4 MG INJ IV (11:02)
[2018-07-17] MEDS: ATORVASTATIN 40 MG TAB PO (20:27)
[2018-07-17] MEDS: INSULIN GLARGINE [LANTus] (100 UNITS/ML) SYG SC (20:34)
[2018-07-18] MEDS: ACCU-CHEK XX (02:00)
[2018-07-18] MEDS: EMPAGLIFLOZIN 10 MG TABLET PO (08:06)
[2018-07-18] MEDS: LUBIPROSTONE 24 MCG CAP PO ×2 (08:06→20:58)
[2018-07-18] MEDS: metFORMIN 500 MG TAB PO ×2 (08:06→17:28)
[2018-07-18] MEDS: NIFEdipine (XL) 30 MG TAB PO (08:07)
[2018-07-18] MEDS: LOSARTAN 50 MG TAB PO (08:07)
[2018-07-18] MEDS: HYDROCHLOROTHIAZIDE 25 MG TAB PO (08:07)
[2018-07-18] MEDS: METOPROLOL 100 MG TAB PO ×2 (08:08→20:58)
[2018-07-18] MEDS: METOPROLOL 50 MG TAB PO ×2 (08:08→20:59)
[2018-07-18] MEDS: INSULIN ASPART [NOVOLOG] 3 ML PEN SC ×4 (08:16→21:00)
[2018-07-18] MEDS: ENOXAPARIN 60 MG/0.6 ML SYG SC ×2 (08:18→21:04)
[2018-07-18] MEDS: INSULIN GLARGINE [LANTus] (100 UNITS/ML) SYG SC (20:00)
[2018-07-18] MEDS: ATORVASTATIN 40 MG TAB PO (20:59)
[2018-07-19] MEDS: ACCU-CHEK XX (01:28)
[2018-07-19 06:52] LABS: ADD MAN DIFF? NO
[2018-07-19 06:56] LABS: WHITE BLOOD COUNT 6.7 10^3/ul (4.8-10.8)
[2018-07-19 06:56] LABS: BASOPHILS % 0.6 % (0.0-2.0); EOSINOPHILS # 0.1 10^3/ul (0.0-0.5); EOSINOPHILS % 1.7 % (0.0-7.0); HEMATOCRIT 42.4 % (37.0-47.0); HEMOGLOBIN 14.6 g/dl (12.0-16.0); LYMPHOCYTES # 2.8 10^3/ul (0.8-2.9); LYMPHOCYTES % 41.4 % (15.0-51.0); MEAN CORPUSCULAR HEMOGLOBIN 28.3 pg (29.0-33.0); MEAN CORPUSCULAR HGB CONC 34.4 g/dl (32.0-37.0); MEAN CORPUSCULAR VOLUME 82.3 fl (82.0-101.0); MEAN PLATELET VOLUME 8.9 fl (7.4-10.4); MONOCYTE # 0.7 10^3/ul (0.3-0.9); MONOCYTES % 9.9 % (0.0-11.0); NEUTROPHIL # 3.1 10^3/ul (1.6-7.5); NEUTROPHILS % 45.9 % (39.0-77.0); PLATELET COUNT 385 10^3/UL (140-415); RED BLOOD COUNT 5.15 10^6/ul (4.20-5.40); RED CELL DISTRIBUTION WIDTH 15.3 % (11.5-14.5)
[2018-07-19 07:18] LABS: ALANINE AMINOTRANSFERASE 41 IU/L (13-69); ALBUMIN 3.9 g/dl (3.3-4.9); ALBUMIN/GLOBULIN RATIO 1.11; ALKALINE PHOSPHATASE 97 IU/L (42-121); ANION GAP 7 (5-13); ASPARTATE AMINO TRANSFERASE 33 IU/L (15-46); BILIRUBIN,INDIRECT 0.5 mg/dl (0-1.1); BILIRUBIN,TOTAL 0.5 mg/dl (0.2-1.3); BLOOD UREA NITROGEN 21 mg/dl (7-20); CALCIUM 9.7 mg/dl (8.4-10.2); CARBON DIOXIDE 27 mmol/L (21-31); CHLORIDE 102 mmol/L (97-110); CREATININE 0.89 mg/dl (0.44-1.00); Estimated GFR > 60 mL/min (>60); GLUCOSE 137 mg/dl (70-220); LIPASE 311 U/L (23-300); SODIUM 136 mmol/L (135-144); TOTAL PROTEIN 7.4 g/dl (6.1-8.1)
[2018-07-19] MEDS: LUBIPROSTONE 24 MCG CAP PO (08:20)
[2018-07-19] MEDS: metFORMIN 500 MG TAB PO (08:20)
[2018-07-19] MEDS: NIFEdipine (XL) 30 MG TAB PO (08:21)
[2018-07-19] MEDS: LOSARTAN 50 MG TAB PO (08:21)
[2018-07-19] MEDS: POLYETHYLENE GLYCOL 17 GM PACKET PO (08:22)
[2018-07-19] MEDS: EMPAGLIFLOZIN 10 MG TABLET PO (08:22)
[2018-07-19] MEDS: DOCUSATE SODIUM 100 MG CAP PO (08:22)
[2018-07-19] MEDS: METOPROLOL 50 MG TAB PO (08:22)
[2018-07-19] MEDS: INSULIN ASPART [NOVOLOG] 3 ML PEN SC ×2 (08:23→12:14)
[2018-07-19] MEDS: ENOXAPARIN 60 MG/0.6 ML SYG SC (08:24)
[2018-07-19] MEDS: METOPROLOL 100 MG TAB PO (08:24)
== END 2018-07-19 15:36 | disposition home or self-care (01) | DRG 871 ==
LOC: E/R 20:17 → TEL 07-14 01:14
PROVIDERS: Internal Medicine
DX: A41.9 Sepsis, unspecified organism (principal); K85.90 Acute pancreatitis without necrosis or infection, unspecified; N17.9 Acute kidney failure, unspecified; I10 Essential (primary) hypertension; E78.5 Hyperlipidemia, unspecified; I48.2 Chronic atrial fibrillation; K59.00 Constipation, unspecified; E11.65 Type 2 diabetes mellitus with hyperglycemia; Z79.4 Long term (current) use of insulin; Z79.01 Long term (current) use of anticoagulants; Z79.82 Long term (current) use of aspirin
CPT/HCPCS: 36415; 71045; 74176; 74181; 76705; 80053; 80061; 82150; 82550; 82553; 82962; 83036; 83605; 83690; 84443; 84484; 85025; 86301; 87040; 87045; 87081; 87086; 87400; 93005; 96374; 96375; 99291-25

== ENCOUNTER 2018-12-12 12:05 | Inpatient (IN) | payer OTHER ==
[2018-12-12 13:54] LABS: ADD MAN DIFF? NO
[2018-12-12 13:57] LABS: BASOPHILS % 0.3 % (0.0-2.0); EOSINOPHILS # 0.1 10^3/ul (0.0-0.5); EOSINOPHILS % 0.4 % (0.0-7.0); HEMATOCRIT 43.8 % (37.0-47.0); HEMOGLOBIN 14.7 g/dl (12.0-16.0); LYMPHOCYTES % 17.3 % (15.0-51.0); MEAN CORPUSCULAR HEMOGLOBIN 27.9 pg (29.0-33.0); MEAN CORPUSCULAR HGB CONC 33.6 g/dl (32.0-37.0); MEAN CORPUSCULAR VOLUME 83.3 fl (82.0-101.0); MONOCYTE # 0.6 10^3/ul (0.3-0.9); NEUTROPHILS % 76.5 % (39.0-77.0); PLATELET COUNT 310 10^3/UL (140-415); RED BLOOD COUNT 5.26 10^6/ul (4.20-5.40); RED CELL DISTRIBUTION WIDTH 13.3 % (11.5-14.5)
[2018-12-12 13:57] LABS: WHITE BLOOD COUNT 11.7 10^3/ul (4.8-10.8)
[2018-12-12] MEDS: IODIXANOL LOCM 100 ML BTL (14:02)
[2018-12-12] MEDS: SOD CHLORIDE 0.9% 100 ML (14:02)
[2018-12-12 14:15] LABS: ANION GAP 14 (5-13); BLOOD UREA NITROGEN 28 mg/dl (7-20); CALCIUM 9.6 mg/dl (8.4-10.2); CARBON DIOXIDE 24 mmol/L (21-31); CHLORIDE 94 mmol/L (97-110); CHOL/HDL RATIO 4.6 RATIO; CHOLESTEROL 219 mg/dl (100-200); CREATINE KINASE 56 IU/L (23-200); CREATININE 1.06 mg/dl (0.44-1.00); Estimated GFR 52 mL/min (>60); GLUCOSE 363 mg/dl (70-220); HDL CHOLESTEROL 47 mg/dl (35-98); LDL CHOLESTEROL,CALCULATED 119 mg/dl; POTASSIUM 5.6 mmol/L (3.5-5.1); SODIUM 132 mmol/L (135-144); TRIGLYCERIDES 265 mg/dl (0-149)
[2018-12-12 14:22] LABS: INR 0.96; PROTIME 12.9 Sec (11.9-14.9)
[2018-12-12 14:23] LABS: ETHANOL < 10.0 mg/dl (0-0); PARTIAL THROMBOPLASTIN TIME 31.8 Sec (23.0-35.0)
[2018-12-12] MEDS: ASPIRIN 325 MG TAB PO (14:28)
[2018-12-12 14:33] LABS: TROPONIN-I 0.082 ng/ml (0.000-0.120)
[2018-12-12] MEDS ORDERED: ONDANSETRON 4 MG INJ IV (15:00)
[2018-12-12] MEDS ORDERED: ACETAMINOPHEN 325 MG TAB PO (15:00)
[2018-12-12] MEDS: INSULIN ASPART [NOVOLOG] 3 ML PEN SC (17:47)
[2018-12-12] MEDS: ASPIRIN (EC) 81 MG TAB PO (17:48)
[2018-12-12] MEDS ORDERED: GLUCOSE GEL 15 GRAM TUBE BUCCAL (18:00)
[2018-12-12] MEDS ORDERED: GLUCOSE GEL 15 GRAM TUBE PO ×2 (18:00)
[2018-12-12] MEDS ORDERED: DEXTROSE 50% 50 ML SYRINGE IV ×2 (18:00)
[2018-12-12] MEDS ORDERED: GLUCAGON 1 MG INJ IM (18:00)
[2018-12-12] MEDS: ENOXAPARIN 60 MG/0.6 ML SYG SC (19:37)
[2018-12-12] MEDS: ATORVASTATIN 40 MG TAB PO (22:03)
[2018-12-12] MEDS: LORAZEPAM 2 MG INJ IV (22:04)
[2018-12-12] MEDS: METOPROLOL 100 MG TAB PO (22:04)
[2018-12-12] MEDS: INSULIN GLARGINE [LANTus] (100 UNITS/ML) SYG SC (22:09)
[2018-12-13 07:15] LABS: B-TYPE NATRIURETIC PEPTIDE 1200 PG/ML (0-125)
[2018-12-13] MEDS: INSULIN ASPART [NOVOLOG] 3 ML PEN SC ×3 (07:55→17:46)
[2018-12-13] MEDS: ASPIRIN (EC) 81 MG TAB PO (08:47)
[2018-12-13] MEDS: METOPROLOL 100 MG TAB PO ×2 (08:48→20:41)
[2018-12-13] MEDS: NIFEdipine (XL) 60 MG TAB PO (08:48)
[2018-12-13] MEDS: ENOXAPARIN 60 MG/0.6 ML SYG SC ×2 (08:52→21:00)
[2018-12-13] MEDS ORDERED: EMPAGLIFLOZIN 10 MG TABLET PO (09:00)
[2018-12-13 09:22] LABS: ADD UMIC NO; UR ASCORBIC ACID NEGATIVE (NEGATIVE); UR BILIRUBIN (Dip) NEGATIVE (NEGATIVE); UR BLOOD (Dip) NEGATIVE (NEGATIVE); UR CLARITY CLEAR (CLEAR); UR COLOR STRAW (YELLOW); UR GLUCOSE (Dip) 3+ mg/dL (NEGATIVE); UR KETONES (Dip) NEGATIVE (NEGATIVE); UR LEUKOCYTE ESTERASE (Dip) NEGATIVE Leu/ul (NEGATIVE); UR NITRITE (Dip) NEGATIVE (NEGATIVE); UR SPECIFIC GRAVITY (Dip) 1.022 (1.003-1.030); UR TOTAL PROTEIN (Dip) NEGATIVE (NEGATIVE); UR UROBILINOGEN (Dip) NEGATIVE (NEGATIVE)
[2018-12-13 09:40] LABS: ADD MAN DIFF? NO
[2018-12-13 09:43] LABS: WHITE BLOOD COUNT 6.7 10^3/ul (4.8-10.8)
[2018-12-13 09:43] LABS: BASOPHIL # 0.1 10^3/ul (0.0-0.1); EOSINOPHILS # 0.1 10^3/ul (0.0-0.5); EOSINOPHILS % 1.6 % (0.0-7.0); HEMATOCRIT 44.9 % (37.0-47.0); MEAN CORPUSCULAR HEMOGLOBIN 27.9 pg (29.0-33.0); MEAN CORPUSCULAR HGB CONC 33.4 g/dl (32.0-37.0); MEAN CORPUSCULAR VOLUME 83.5 fl (82.0-101.0); MEAN PLATELET VOLUME 8.9 fl (7.4-10.4); MONOCYTE # 0.5 10^3/ul (0.3-0.9); MONOCYTES % 6.8 % (0.0-11.0); NEUTROPHIL # 4.1 10^3/ul (1.6-7.5); NEUTROPHILS % 60.2 % (39.0-77.0); PLATELET COUNT 319 10^3/UL (140-415); RED BLOOD COUNT 5.38 10^6/ul (4.20-5.40); RED CELL DISTRIBUTION WIDTH 13.2 % (11.5-14.5)
[2018-12-13 10:00] LABS: ANION GAP 11 (5-13); BLOOD UREA NITROGEN 23 mg/dl (7-20); CALCIUM 9.7 mg/dl (8.4-10.2); CARBON DIOXIDE 25 mmol/L (21-31); CHLORIDE 103 mmol/L (97-110); CREATININE 0.97 mg/dl (0.44-1.00); Estimated GFR 58 mL/min (>60); GLUCOSE 141 mg/dl (70-220); POTASSIUM 4.5 mmol/L (3.5-5.1); SODIUM 139 mmol/L (135-144)
[2018-12-13] MEDS: EMPAGLIFLOZIN 10 MG TABLET PO (11:40)
[2018-12-13] MEDS: ATORVASTATIN 40 MG TAB PO (20:40)
[2018-12-13] MEDS: INSULIN GLARGINE [LANTus] (100 UNITS/ML) SYG SC (21:00)
[2018-12-14 06:19] LABS: ADD MAN DIFF? NO
[2018-12-14 06:23] LABS: WHITE BLOOD COUNT 7.1 10^3/ul (4.8-10.8)
[2018-12-14 06:23] LABS: BASOPHIL # 0.1 10^3/ul (0.0-0.1); BASOPHILS % 1.1 % (0.0-2.0); EOSINOPHILS # 0.1 10^3/ul (0.0-0.5); HEMATOCRIT 44.7 % (37.0-47.0); HEMOGLOBIN 15.1 g/dl (12.0-16.0); LYMPHOCYTES # 2.6 10^3/ul (0.8-2.9); LYMPHOCYTES % 36.7 % (15.0-51.0); MEAN CORPUSCULAR HEMOGLOBIN 28.2 pg (29.0-33.0); MEAN CORPUSCULAR HGB CONC 33.8 g/dl (32.0-37.0); MEAN CORPUSCULAR VOLUME 83.6 fl (82.0-101.0); MEAN PLATELET VOLUME 9.1 fl (7.4-10.4); MONOCYTE # 0.7 10^3/ul (0.3-0.9); MONOCYTES % 10.4 % (0.0-11.0); NEUTROPHIL # 3.5 10^3/ul (1.6-7.5); NEUTROPHILS % 49.4 % (39.0-77.0); PLATELET COUNT 336 10^3/UL (140-415); RED BLOOD COUNT 5.35 10^6/ul (4.20-5.40); RED CELL DISTRIBUTION WIDTH 13.2 % (11.5-14.5)
[2018-12-14 06:54] LABS: ANION GAP 10 (5-13); BLOOD UREA NITROGEN 26 mg/dl (7-20); CALCIUM 9.5 mg/dl (8.4-10.2); CARBON DIOXIDE 23 mmol/L (21-31); CHLORIDE 107 mmol/L (97-110); Estimated GFR 56 mL/min (>60); GLUCOSE 106 mg/dl (70-220); POTASSIUM 4.1 mmol/L (3.5-5.1); SODIUM 140 mmol/L (135-144)
[2018-12-14 07:15] LABS: AMPHETAMINE/METHAMPHETAMINE Negative (NEGATIVE); BARBITURATES Negative (NEGATIVE); BENZODIAZEPINES Negative (NEGATIVE); CANNABINOIDS Negative (NEGATIVE); COCAINE Negative (NEGATIVE); OPIATES Negative (NEGATIVE)
[2018-12-14] MEDS: INSULIN ASPART [NOVOLOG] 3 ML PEN SC ×3 (07:53→17:24)
[2018-12-14] MEDS: EMPAGLIFLOZIN 10 MG TABLET PO (07:57)
[2018-12-14] MEDS: METOPROLOL 100 MG TAB PO ×2 (08:08→20:42)
[2018-12-14] MEDS: NIFEdipine (XL) 60 MG TAB PO (08:08)
[2018-12-14] MEDS: ASPIRIN (EC) 81 MG TAB PO (08:09)
[2018-12-14] MEDS: ENOXAPARIN 60 MG/0.6 ML SYG SC ×2 (08:10→20:56)
[2018-12-14] MEDS: ATORVASTATIN 40 MG TAB PO (20:42)
[2018-12-14] MEDS: INSULIN GLARGINE [LANTus] (100 UNITS/ML) SYG SC (20:55)
[2018-12-15] MEDS: NIFEdipine (XL) 60 MG TAB PO (08:01)
[2018-12-15] MEDS: ASPIRIN (EC) 81 MG TAB PO (08:02)
[2018-12-15] MEDS: EMPAGLIFLOZIN 10 MG TABLET PO (08:02)
[2018-12-15] MEDS: METOPROLOL 100 MG TAB PO ×2 (08:02→20:28)
[2018-12-15] MEDS: ENOXAPARIN 60 MG/0.6 ML SYG SC ×2 (08:03→21:43)
[2018-12-15] MEDS: INSULIN ASPART [NOVOLOG] 3 ML PEN SC ×3 (08:04→16:48)
[2018-12-15 17:09] LABS: ERYTHROCYTE SEDIMENTATION RATE 8 mm/Hr (0-30)
[2018-12-15] MEDS: ATORVASTATIN 40 MG TAB PO (20:28)
[2018-12-15] MEDS: INSULIN GLARGINE [LANTus] (100 UNITS/ML) SYG SC (21:43)
[2018-12-16] MEDS: INSULIN ASPART [NOVOLOG] 3 ML PEN SC ×3 (08:09→17:21)
[2018-12-16] MEDS: EMPAGLIFLOZIN 10 MG TABLET PO (08:28)
[2018-12-16] MEDS: NIFEdipine (XL) 60 MG TAB PO (08:29)
[2018-12-16] MEDS: ASPIRIN (EC) 81 MG TAB PO (08:30)
[2018-12-16] MEDS: METOPROLOL 100 MG TAB PO (08:30)
[2018-12-16] MEDS: ENOXAPARIN 60 MG/0.6 ML SYG SC ×2 (08:33→21:03)
[2018-12-16 15:22] LABS: RAPID PLASMA REAGIN NONREACTIVE (NR)
[2018-12-16] MEDS: ATORVASTATIN 40 MG TAB PO (20:52)
[2018-12-16 21:00] LABS: TROPONIN-I < 0.012 ng/ml (0.000-0.120)
[2018-12-16] MEDS: INSULIN GLARGINE [LANTus] (100 UNITS/ML) SYG SC (21:03)
[2018-12-17 01:20] LABS: TROPONIN-I < 0.012 ng/ml (0.000-0.120)
[2018-12-17 06:56] LABS: ADD MAN DIFF? NO
[2018-12-17 07:00] LABS: WHITE BLOOD COUNT 7.5 10^3/ul (4.8-10.8)
[2018-12-17 07:00] LABS: BASOPHIL # 0.1 10^3/ul (0.0-0.1); BASOPHILS % 0.7 % (0.0-2.0); EOSINOPHILS # 0.1 10^3/ul (0.0-0.5); EOSINOPHILS % 1.6 % (0.0-7.0); HEMATOCRIT 42.6 % (37.0-47.0); HEMOGLOBIN 14.4 g/dl (12.0-16.0); LYMPHOCYTES # 2.3 10^3/ul (0.8-2.9); LYMPHOCYTES % 30.5 % (15.0-51.0); MEAN CORPUSCULAR HEMOGLOBIN 28.3 pg (29.0-33.0); MEAN CORPUSCULAR HGB CONC 33.8 g/dl (32.0-37.0); MEAN CORPUSCULAR VOLUME 83.9 fl (82.0-101.0); MEAN PLATELET VOLUME 9.2 fl (7.4-10.4); MONOCYTE # 0.7 10^3/ul (0.3-0.9); MONOCYTES % 9.1 % (0.0-11.0); NEUTROPHIL # 4.4 10^3/ul (1.6-7.5); NEUTROPHILS % 57.8 % (39.0-77.0); PLATELET COUNT 287 10^3/UL (140-415); RED BLOOD COUNT 5.08 10^6/ul (4.20-5.40); RED CELL DISTRIBUTION WIDTH 13.2 % (11.5-14.5)
[2018-12-17 07:23] LABS: ANION GAP 8 (5-13); BLOOD UREA NITROGEN 23 mg/dl (7-20); CALCIUM 9.3 mg/dl (8.4-10.2); CARBON DIOXIDE 27 mmol/L (21-31); CHLORIDE 104 mmol/L (97-110); CREATININE 0.72 mg/dl (0.44-1.00); Estimated GFR > 60 mL/min (>60); GLUCOSE 69 mg/dl (70-220); POTASSIUM 3.6 mmol/L (3.5-5.1); SODIUM 139 mmol/L (135-144)
[2018-12-17 07:25] LABS: CHOLESTEROL 151 mg/dl (100-200)
[2018-12-17 07:25] LABS: CHOL/HDL RATIO 3.5 RATIO; HDL CHOLESTEROL 43 mg/dl (35-98); LDL CHOLESTEROL,CALCULATED 89 mg/dl; TRIGLYCERIDES 95 mg/dl (0-149)
[2018-12-17] MEDS: INSULIN ASPART [NOVOLOG] 3 ML PEN SC ×3 (07:55→18:03)
[2018-12-17] MEDS: ASPIRIN (EC) 81 MG TAB PO (08:13)
[2018-12-17] MEDS: NIFEdipine (XL) 30 MG TAB PO (08:13)
[2018-12-17] MEDS: EMPAGLIFLOZIN 10 MG TABLET PO (08:14)
[2018-12-17] MEDS: ENOXAPARIN 60 MG/0.6 ML SYG SC ×2 (08:57→20:45)
[2018-12-17] MEDS: ATORVASTATIN 40 MG TAB PO (20:40)
[2018-12-17] MEDS: INSULIN GLARGINE [LANTus] (100 UNITS/ML) SYG SC (20:45)
[2018-12-18] MEDS: EMPAGLIFLOZIN 10 MG TABLET PO (08:26)
[2018-12-18] MEDS: NIFEdipine (XL) 30 MG TAB PO (08:27)
[2018-12-18] MEDS: ENOXAPARIN 60 MG/0.6 ML SYG SC ×2 (08:28→20:43)
[2018-12-18] MEDS: INSULIN ASPART [NOVOLOG] 3 ML PEN SC ×3 (08:33→17:49)
[2018-12-18] MEDS: ATORVASTATIN 40 MG TAB PO (20:30)
[2018-12-18] MEDS: INSULIN GLARGINE [LANTus] (100 UNITS/ML) SYG SC (20:43)
[2018-12-18] MEDS: ACETAMINOPHEN 325 MG TAB PO (23:38)
[2018-12-19] MEDS: INSULIN ASPART [NOVOLOG] 3 ML PEN SC ×4 (07:43→17:17)
[2018-12-19] MEDS: EMPAGLIFLOZIN 10 MG TABLET PO (08:06)
[2018-12-19] MEDS: NIFEdipine (XL) 30 MG TAB PO (08:06)
[2018-12-19] MEDS: ENOXAPARIN 60 MG/0.6 ML SYG SC ×2 (08:07→20:51)
[2018-12-19] MEDS: ATORVASTATIN 40 MG TAB PO (20:42)
[2018-12-19] MEDS: INSULIN GLARGINE [LANTus] (100 UNITS/ML) SYG SC (20:52)
[2018-12-20] MEDS: INSULIN ASPART [NOVOLOG] 3 ML PEN SC ×3 (07:40→17:25)
[2018-12-20] MEDS: NIFEdipine (XL) 30 MG TAB PO (08:07)
[2018-12-20] MEDS: EMPAGLIFLOZIN 10 MG TABLET PO (08:07)
[2018-12-20] MEDS: ENOXAPARIN 60 MG/0.6 ML SYG SC (08:10)
== END 2018-12-20 18:15 | disposition home health service (06) | DRG 65 ==
LOC: TEL 12-14 06:52 → FTE 12:05 → TEL 14:36
DX: I63.9 Cerebral infarction, unspecified (principal); G81.91 Hemiplegia, unspecified affecting right dominant side; G99.2 Myelopathy in diseases classified elsewhere; G95.29 Other cord compression; M48.02 Spinal stenosis, cervical region; I48.91 Unspecified atrial fibrillation; I10 Essential (primary) hypertension; E78.5 Hyperlipidemia, unspecified; E11.9 Type 2 diabetes mellitus without complications; M50.21 Other cervical disc displacement, high cervical region
CPT/HCPCS: 36415; 70450; 70496; 70498; 70551; 71045; 72141; 80048; 80061; 80307; 81003; 82550; 82553; 82962; 83036; 83880; 84443; 84484; 85025; 85610; 85651; 85730; 86592; 92610; 93005; 93306; 97162; 97164; 97167; 99285-25